=== PATIENT | female | born 1955 | race African-American/Black ===

== ENCOUNTER 2021-02-09 07:06 | Inpatient (IN) | payer OTHER ==
[~2021-02-09] VITALS: Ht 160 cm; Wt 81.4 kg
[~2021-02-09 07:06] MED LIST: ASPI-1406; GLIP10TA10; LOSA100T3; METF1000
[2021-02-09] MEDS ORDERED: ALBUTEROL (0.083%) 2.5MG/3ML NEB HHN STA (07:21)
[2021-02-09 07:57] LABS: BASOPHILS % 0.4 % (0.0-2.0); EOSINOPHILS % 0.4 % (0.0-5.0); HEMOGLOBIN. 11.7 g/dL (12.0-16.0); MEAN CORPUSCULAR HEMOGLOBIN 31.2 pg (28.0-32.0); MEAN CORPUSCULAR VOLUME 93.1 fL (81.0-99.0); MEAN PLATELET VOLUME 11.6 fl (7.4-10.4); MONOCYTES % 8.4 % (2.0-8.0); NEUTROPHILS % 52.8 % (40.0-76.0); PLATELET 195 x1000/uL (130-400); RED BLOOD CELL COUNT 3.76 mill/uL (4.2-5.4); RED CELL DISTRIBUTION WIDTH 14.3 % (11.6-14.6)
[2021-02-09] MEDS ORDERED: AZITHROMYCIN 500 MG in DEXT 5% WATER 250 ML IV ONE (09:00)
[2021-02-09] MEDS ORDERED: CEFTRIAXONE 1 G PREMIX 50 ML IV ONE (09:00)
[2021-02-09 09:34] LABS: CHLORIDE 111 mEq/L (98-107)
[2021-02-09 09:59] LABS: BG BASE EXCESS -4.7 mmol/L (-2.0-2.0); BG CARBOXYHEMOGLOBIN 0.8 % (0.5-1.5); BG FRACTION INSPIRED OXYGEN 32; BG HCO3 ACT 20.3 mmol/L (22.0-26.0); BG METHEMOGLOBIN 0.3 % (0.0-1.5); BG OXYHEMOGLOBIN 94.9 % (94.0-97.0); BG PCO2 37.2 mmHg (35.0-45.0); BG PH 7.355 (7.350-7.450); BG PO2 89.9 mmHg (75.0-100.0); BG SAMPLE SITE RIGHT BRACHIAL; BG TOTAL HEMOGLOBIN 11.8 g/dL (12.0-18.0); BG VENT MODE NASAL CANNULA
[2021-02-09] MEDS: AMLODIPINE 5MG TABLET PO SCH (10:42)
[2021-02-09] MEDS ORDERED: IPRATROPIUM/ALBUTEROL 0.5-3(2.5)MG/3ML NEB HHN PRN ×2 (12:30→12:45)
[2021-02-09] MEDS ORDERED: FUROSEMIDE 40MG/4ML VIAL IVP SCH (12:30)
[2021-02-09] MEDS ORDERED: POTASSIUM CHLORIDE 20MEQ TABLET SR PO NR (12:45)
[2021-02-09] MEDS ORDERED: CLONIDINE 0.1MG TABLET PO PRN (12:45)
[2021-02-09] MEDS ORDERED: DIPHENHYDRAMINE 50MG/ML VIAL IV PRN (12:45)
[2021-02-09] MEDS ORDERED: ACETAMINOPHEN 325MG TABLET PO PRN (12:45)
[2021-02-09] MEDS: GUAIFENESIN 600MG ER TABLET PO SCH ×2 (13:00→23:14)
[2021-02-09] MEDS ORDERED: DEXTROSE 50% WATER 50ML SYRINGE IV PRN (13:15)
[2021-02-09] MEDS: INSULIN LISPRO 100 UNITS/ML SUBCUT SCH ×3 (13:20→21:00)
[2021-02-09] MEDS: BLOOD SUGAR DIAGNOSTIC STRIP TEST SCH ×3 (13:20→21:02)
[2021-02-09] MEDS: IPRATROPIUM/ALBUTEROL 0.5-3(2.5)MG/3ML NEB HHN SCH ×2 (14:00→20:31)
[2021-02-09] MEDS: ATORVASTATIN CALCIUM 20MG TABLET PO SCH (21:09)
[2021-02-09 22:30] VITALS: BP 161/70
[2021-02-09 23:00] VITALS: BP_SYST 161; BP_SYST 173; BP_DIAS 70; BP_DIAS 79
[2021-02-10] VITALS (10 sets, daily range): BP systolic 104–173; BP diastolic 51–81
[2021-02-10 07:06] LABS: BASOPHILS % 0.7 % (0.0-2.0); EOSINOPHILS % 0.4 % (0.0-5.0); HEMATOCRIT. 31.3 % (36.0-48.0); HEMOGLOBIN. 10.5 g/dL (12.0-16.0); LYMPHOCYTES % 26.5 % (20.0-50.0); MEAN CORPUSCULAR HEMOGLOBIN 31.2 pg (28.0-32.0); MEAN CORPUSCULAR VOLUME 93.2 fL (81.0-99.0); MEAN PLATELET VOLUME 11.7 fl (7.4-10.4); MONOCYTES % 13.8 % (2.0-8.0); NEUTROPHILS % 58.6 % (40.0-76.0); PLATELET 139 x1000/uL (130-400); RED BLOOD CELL COUNT 3.36 mill/uL (4.2-5.4); RED CELL DISTRIBUTION WIDTH 13.5 % (11.6-14.6)
[2021-02-10 07:08] LABS: CHLORIDE 109 mEq/L (98-107)
[2021-02-10 07:20] LABS: LDL CHOLESTEROL 138 mg/dL (5-100)
[2021-02-10 07:21] LABS: HDL CHOLESTEROL 54 mg/dL (40-59)
[2021-02-10] MEDS ORDERED: OMEP20CA14 PO (07:48)
[2021-02-10] MEDS: BLOOD SUGAR DIAGNOSTIC STRIP TEST SCH ×4 (07:49→20:23)
[2021-02-10] MEDS: INSULIN LISPRO 100 UNITS/ML SUBCUT SCH ×4 (07:50→20:23)
[2021-02-10] MEDS: IPRATROPIUM/ALBUTEROL 0.5-3(2.5)MG/3ML NEB HHN SCH (07:51)
[2021-02-10] MEDS: AMLODIPINE 5MG TABLET PO SCH (08:54)
[2021-02-10] MEDS: GUAIFENESIN 600MG ER TABLET PO SCH ×2 (08:54→21:19)
[2021-02-10] MEDS: ASPIRIN 81MG TABLET PO SCH (08:54)
[2021-02-10] MEDS: OMEPRAZOLE 20MG CAPSULE EXTENDED RELEASE PO SCH (08:54)
[2021-02-10] MEDS: CARVEDILOL 6.25 MG TABLET PO SCH ×2 (09:38→21:20)
[2021-02-10] MEDS: ENOXAPARIN 80MG/0.8ML SYR SUBCUT SCH (09:39)
[2021-02-10] MEDS ORDERED: HEPARIN SODIUM 1,000 UNIT/1ML VIAL IV ONE (10:55)
[2021-02-10] MEDS ORDERED: NITROGLYCERIN 50MCG/ML 10ML VIAL (CATH LAB) IV ONE (10:55)
[2021-02-10] MEDS ORDERED: NICARDIPINE 100MCG/ML 10ML VIAL (CATH LAB) IV ONE (10:55)
[2021-02-10] MEDS ORDERED: MIDAZOLAM HCL 2 MG/2 ML VIAL ONE ×3 (12:37→14:12)
[2021-02-10] MEDS ORDERED: FENTANYL CITRATE/PF 50MCG/ML 2ML VIAL ONE ×2 (12:37→14:13)
[2021-02-10] MEDS ORDERED: IODIXANOL 320MG/ML 100 ML BOTTLE IV ONE ×2 (12:38→14:18)
[2021-02-10] MEDS ORDERED: LIDOCAINE HCL 1% 20ML VIAL (Pyxis) INJ ONE (12:38)
[2021-02-10] MEDS ORDERED: VERAPAMIL HCL 2.5 MG/1 ML 2ML VIAL IV ONE (13:16)
[2021-02-10] MEDS ORDERED: IOHEXOL-300 100 ML BOTTLE ONE (13:44)
[2021-02-10] MEDS ORDERED: ATROPINE SULFATE 1MG/10ML SYR IV PRN (15:15)
[2021-02-10] MEDS ORDERED: CLOPIDOGREL 75MG TABLET PO NR ×2 (16:15→19:00)
[2021-02-10] MEDS ORDERED: MORPHINE SULFATE 2 MG/ML CPJ (NOT FOR IM USE) IV NR (16:30)
[2021-02-10] MEDS ORDERED: FUROSEMIDE 40MG/4ML VIAL IVP SCH (18:00)
[2021-02-10] MEDS ORDERED: SODIUM CHLORIDE 0.9% 1,000 ML IV SCH (19:00)
[2021-02-10] MEDS: TRAMADOL 50MG TABLET PO PRN (19:54)
[2021-02-10] MEDS: ATORVASTATIN CALCIUM 20MG TABLET PO SCH (21:19)
[2021-02-11] VITALS (14 sets, daily range): BP systolic 132–191; BP diastolic 55–72
[2021-02-11] MEDS: OMEPRAZOLE 20MG CAPSULE EXTENDED RELEASE PO SCH ×2 (05:52→14:20)
[2021-02-11] MEDS: INSULIN LISPRO 100 UNITS/ML SUBCUT SCH ×4 (07:13→20:35)
[2021-02-11] MEDS: BLOOD SUGAR DIAGNOSTIC STRIP TEST SCH ×4 (07:13→20:35)
[2021-02-11 07:19] LABS: BASOPHILS % 0.8 % (0.0-2.0); EOSINOPHILS % 1.3 % (0.0-5.0); HEMATOCRIT. 32.3 % (36.0-48.0); HEMOGLOBIN. 10.7 g/dL (12.0-16.0); MEAN CORPUSCULAR HEMOGLOBIN 31.4 pg (28.0-32.0); MEAN CORPUSCULAR VOLUME 94.5 fL (81.0-99.0); MEAN PLATELET VOLUME 11.5 fl (7.4-10.4); MONOCYTES % 11.8 % (2.0-8.0); NEUTROPHILS % 61.1 % (40.0-76.0); PLATELET 145 x1000/uL (130-400); RED BLOOD CELL COUNT 3.42 mill/uL (4.2-5.4); RED CELL DISTRIBUTION WIDTH 13.7 % (11.6-14.6)
[2021-02-11 07:26] LABS: INR 1.1; PROTHROMBIN TIME 11.5 sec (9.6-11.0)
[2021-02-11] MEDS: ENOXAPARIN 80MG/0.8ML SYR SUBCUT SCH (09:00)
[2021-02-11] MEDS: CARVEDILOL 6.25 MG TABLET PO SCH ×2 (09:00→20:47)
[2021-02-11] MEDS: ASPIRIN 81MG TABLET PO SCH (09:00)
[2021-02-11] MEDS: GUAIFENESIN 600MG ER TABLET PO SCH ×2 (09:00→20:46)
[2021-02-11] MEDS: CLOPIDOGREL 75MG TABLET PO SCH (09:00)
[2021-02-11] MEDS ORDERED: HEPARIN SODIUM 1,000 UNIT/1ML VIAL IV ONE (09:19)
[2021-02-11] MEDS ORDERED: NITROGLYCERIN 50MCG/ML 10ML VIAL (CATH LAB) IV ONE (09:19)
[2021-02-11] MEDS ORDERED: NICARDIPINE 100MCG/ML 10ML VIAL (CATH LAB) IV ONE (09:19)
[2021-02-11] MEDS ORDERED: IOHEXOL-300 100 ML BOTTLE ONE (11:32)
[2021-02-11] MEDS ORDERED: IODIXANOL 320MG/ML 100 ML BOTTLE IV ONE ×2 (11:32→12:18)
[2021-02-11] MEDS ORDERED: FENTANYL CITRATE/PF 50MCG/ML 2ML VIAL ONE (11:32)
[2021-02-11] MEDS ORDERED: MIDAZOLAM HCL 2 MG/2 ML VIAL ONE (11:32)
[2021-02-11] MEDS ORDERED: LIDOCAINE HCL 1% 20ML VIAL (Pyxis) INJ ONE (11:33)
[2021-02-11 11:58] LABS: CREATINE KINASE 102 IU/L (26-192)
[2021-02-11] MEDS ORDERED: CLOPIDOGREL 75MG TABLET ONE (12:40)
[2021-02-11] MEDS ORDERED: ATROPINE SULFATE 1MG/10ML SYR IV PRN (12:45)
[2021-02-11] MEDS ORDERED: ACETAMINOPHEN 325MG TABLET PO PRN (12:45)
[2021-02-11] MEDS: TRAMADOL 50MG TABLET PO PRN ×2 (13:09→20:48)
[2021-02-11] MEDS: SODIUM CHLORIDE 0.45% 1,000 ML IV SCH ×2 (13:10→22:45)
[2021-02-11] MEDS: AMLODIPINE 5MG TABLET PO SCH (13:11)
[2021-02-11] MEDS: ONDANSETRON HCL 4MG/2ML INJ IV PRN (14:19)
[2021-02-11] MEDS: GABAPENTIN 100MG CAPSULE PO SCH ×2 (14:19→20:47)
[2021-02-11] MEDS ORDERED: ENOXAPARIN 100MG/ML SYR SUBCUT SCH (16:00)
[2021-02-11] MEDS: ATORVASTATIN CALCIUM 20MG TABLET PO SCH (20:46)
[2021-02-11 20:52] LABS: CLARITY URINE CLEAR (CLEAR); COLOR URINE YELLOW (YELLOW); KETONES URINE TRACE (NEGATIVE); LEUKOCYTE ESTERASE URINE NEGATIVE (NEGATIVE); NITRITE URINE NEGATIVE (NEGATIVE); OCCULT BLOOD URINE TRACE (NEGATIVE); PH URINE 5.5 (4.5-8.0); PROTEIN URINE 3+ (NEGATIVE); SPECIFIC GRAVITY URINE 1.051 (1.005-1.030)
[2021-02-11 21:04] LABS: *AMPHETAMINES SCREEN URINE NEGATIVE (NEGATIVE); *BARBITURATES SCREEN URINE NEGATIVE (NEGATIVE); *BENZODIAZEPINES SCREEN URINE PRESUMTIVE POSITIVE (NEGATIVE)
[2021-02-11 21:05] LABS: *COCAINE SCREEN URINE NEGATIVE (NEGATIVE); CANNABINOID URINE SCREEN PRESUMTIVE POSITIVE (NEGATIVE); METHADONE URINE SCREEN NEGATIVE (NEGATIVE); OPIATES URINE SCREEN PRESUMTIVE POSITIVE (NEGATIVE); PHENCYCLIDINE URINE SCREEN NEGATIVE (NEGATIVE)
[2021-02-12] VITALS (9 sets, daily range): BP systolic 111–148; BP diastolic 58–82
[2021-02-12] MEDS: BLOOD SUGAR DIAGNOSTIC STRIP TEST SCH ×2 (06:27→11:50)
[2021-02-12] MEDS: INSULIN LISPRO 100 UNITS/ML SUBCUT SCH ×2 (06:28→12:20)
[2021-02-12] MEDS: GABAPENTIN 100MG CAPSULE PO SCH (06:30)
[2021-02-12] MEDS ORDERED: FAMOTIDINE 20MG TABLET PO SCH (06:50)
[2021-02-12 07:21] LABS: BASOPHILS % 0.7 % (0.0-2.0); EOSINOPHILS % 1.7 % (0.0-5.0); HEMATOCRIT. 30.2 % (36.0-48.0); HEMOGLOBIN. 10.1 g/dL (12.0-16.0); LYMPHOCYTES % 21.1 % (20.0-50.0); MEAN CORPUSCULAR HEMOGLOBIN 31.3 pg (28.0-32.0); MEAN CORPUSCULAR VOLUME 93.7 fL (81.0-99.0); MEAN PLATELET VOLUME 10.6 fl (7.4-10.4); MONOCYTES % 14.6 % (2.0-8.0); NEUTROPHILS % 61.9 % (40.0-76.0); PLATELET 135 x1000/uL (130-400); RED BLOOD CELL COUNT 3.22 mill/uL (4.2-5.4); RED CELL DISTRIBUTION WIDTH 13.8 % (11.6-14.6)
[2021-02-12] MEDS: SODIUM CHLORIDE 0.45% 1,000 ML IV SCH (08:45)
[2021-02-12] MEDS: CARVEDILOL 6.25 MG TABLET PO SCH (09:34)
[2021-02-12] MEDS: ASPIRIN 81MG TABLET PO SCH (09:34)
[2021-02-12] MEDS: AMLODIPINE 5MG TABLET PO SCH (09:34)
[2021-02-12] MEDS: CLOPIDOGREL 75MG TABLET PO SCH (09:35)
[2021-02-12] MEDS: GUAIFENESIN 600MG ER TABLET PO SCH (09:35)
[2021-02-12] MEDS ORDERED: GABA-529 PO ×3 (12:41→15:06)
[2021-02-12] MEDS ORDERED: ATOR20TA PO ×3 (12:41→15:06)
[2021-02-12] MEDS ORDERED: CLOP75TA15 PO ×3 (12:41→15:06)
[2021-02-12] MEDS ORDERED: AMLO5TAB88 PO ×3 (12:41→15:06)
[2021-02-12] MEDS ORDERED: COR6 PO ×3 (12:41→15:06)
[2021-02-12] MEDS: ONDANSETRON HCL 4MG/2ML INJ IV PRN (14:58)
[2021-02-12] MEDS ORDERED: ENOXAPARIN 80MG/0.8ML SYR SUBCUT SCH (17:00)
== END 2021-02-12 16:00 | disposition home or self-care (01) | DRG 175 ==
LOC: ER 07:06 → MICUSO 09:55 → 5EST 21:03 → 3WST 02-10 18:41
PROVIDERS: ADMIT Internal Medicine; ATTEND Internal Medicine
PROC: 027035Z Dilation of Coronary Artery, One Artery with Two Drug-eluting Intraluminal Devices, Percutaneous Approach (ICD-10-PCS; principal; 2021-02-11)
PROC: 4A023N7 Measurement of Cardiac Sampling and Pressure, Left Heart, Percutaneous Approach (ICD-10-PCS; 2021-02-11)
PROC: B211YZZ Fluoroscopy of Multiple Coronary Arteries using Other Contrast (ICD-10-PCS; 2021-02-11)
PROC: B215YZZ Fluoroscopy of Left Heart using Other Contrast (ICD-10-PCS; 2021-02-11)
DX: I25.10 Atherosclerotic heart disease of native coronary artery without angina pectoris (principal); J96.01 Acute respiratory failure with hypoxia; I50.43 Acute on chronic combined systolic (congestive) and diastolic (congestive) heart failure; I21.A1 Myocardial infarction type 2; E44.0 Moderate protein-calorie malnutrition; J18.9 Pneumonia, unspecified organism; N17.9 Acute kidney failure, unspecified; I27.20 Pulmonary hypertension, unspecified; I13.0 Hypertensive heart and chronic kidney disease with heart failure and stage 1 through stage 4 chronic kidney disease, or unspecified chronic kidney disease; E11.22 Type 2 diabetes mellitus with diabetic chronic kidney disease; E66.9 Obesity, unspecified; E78.5 Hyperlipidemia, unspecified; E87.6 Hypokalemia; F17.200 Nicotine dependence, unspecified, uncomplicated; I16.0 Hypertensive urgency; J06.9 Acute upper respiratory infection, unspecified; K74.60 Unspecified cirrhosis of liver; N18.9 Chronic kidney disease, unspecified; I08.3 Combined rheumatic disorders of mitral, aortic and tricuspid valves; Z20.822 Contact with and (suspected) exposure to COVID-19; Z88.0 Allergy status to penicillin; Z98.51 Tubal ligation status; Z68.31 Body mass index [BMI] 31.0-31.9, adult
CPT/HCPCS: 36415; 36600; 71045; 80048; 80053; 80061; 80305; 81003; 82375; 82550; 82805; 82962; 83036; 83880; 84443; 84484; 85025; 85347; 87426; 92928; 93005; 93306; 93454; 93458; 93970; 94640; 99291; A6261; C1760; C1769; C1874 ×2; C1887; C1893; J0456; J0696; J1644; J1650; J1815; J1940; J2250; J2270; J2405; J3010; J3490; J7060; Q9967; C1725

== ENCOUNTER 2021-02-14 03:28 | Inpatient (IN) | payer MEDICAID, OTHER ==
[~2021-02-14] VITALS: Ht 162.6 cm; Wt 79.8 kg
[~2021-02-14 03:28] MED LIST changes: +AMLO5TAB88 PO; +ATOR20TA PO; +CLOP75TA15 PO; +COR6 PO; +GABA-529 PO; -LOSA100T3; +OMEP20CA14 PO
[2021-02-14 05:21] LABS: BASOPHILS % 0.8 % (0.0-2.0); EOSINOPHILS % 1.4 % (0.0-5.0); HEMATOCRIT. 32.7 % (36.0-48.0); HEMOGLOBIN. 11.3 g/dL (12.0-16.0); LYMPHOCYTES % 21.2 % (20.0-50.0); MEAN CORPUSCULAR HEMOGLOBIN 31.9 pg (28.0-32.0); MEAN CORPUSCULAR VOLUME 92.1 fL (81.0-99.0); MEAN PLATELET VOLUME 10.5 fl (7.4-10.4); MONOCYTES % 12.3 % (2.0-8.0); NEUTROPHILS % 64.3 % (40.0-76.0); PLATELET 173 x1000/uL (130-400); RED BLOOD CELL COUNT 3.54 mill/uL (4.2-5.4); RED CELL DISTRIBUTION WIDTH 13.2 % (11.6-14.6)
[2021-02-14 05:35] LABS: CHLORIDE 109 mEq/L (98-107)
[2021-02-14] MEDS ORDERED: AZITHROMYCIN 500 MG in DEXT 5% WATER 250 ML IV ONE (05:45)
[2021-02-14] MEDS ORDERED: CEFTRIAXONE 1 G PREMIX 50 ML IV ONE (05:45)
[2021-02-14] MEDS ORDERED: CLONIDINE 0.1MG TABLET PO PRN (07:30)
[2021-02-14] MEDS ORDERED: ACETAMINOPHEN 325MG TABLET PO PRN (10:30)
[2021-02-14] MEDS ORDERED: CEFTRIAXONE 1 G PREMIX 50 ML IV SCH (10:30)
[2021-02-14] MEDS ORDERED: ONDANSETRON HCL 4MG/2ML INJ IV PRN (10:30)
[2021-02-14] MEDS ORDERED: FUROSEMIDE 40MG/4ML VIAL IVP NR (10:30)
[2021-02-14] MEDS ORDERED: DEXTROSE 50% WATER 50ML SYRINGE IV PRN (10:30)
[2021-02-14] MEDS: AMLODIPINE 10MG TABLET PO SCH (11:14)
[2021-02-14] MEDS: BLOOD SUGAR DIAGNOSTIC STRIP TEST SCH ×3 (13:00→21:09)
[2021-02-14] MEDS: INSULIN LISPRO 100 UNITS/ML SUBCUT SCH ×3 (13:20→21:09)
[2021-02-14 14:00] VITALS: BP 160/63
[2021-02-14 15:41] VITALS: BP 160/63
[2021-02-14 16:00] VITALS: BP 156/62
[2021-02-14] MEDS ORDERED: ENOXAPARIN 40MG/0.4ML SYR SUBCUT SCH (16:30)
[2021-02-14] MEDS: ISOSORBIDE MONONITRATE 60MG TABLET SR 24HR PO SCH (17:15)
[2021-02-14] MEDS ORDERED: *PATIENT'S OWN MEDICATION STORAGE XX SCH (17:45)
[2021-02-14 20:00] VITALS: BP 145/62
[2021-02-14] MEDS: HYDRALAZINE HCL 25MG TABLET PO SCH (21:10)
[2021-02-14] MEDS ORDERED: ENOXAPARIN 80MG/0.8ML SYR SUBCUT SCH (22:30)
[2021-02-15] VITALS: BP 141/57
[2021-02-15 04:00] VITALS: BP 154/64
[2021-02-15] MEDS: HYDRALAZINE HCL 25MG TABLET PO SCH ×3 (06:30→21:20)
[2021-02-15] MEDS ORDERED: CEFTRIAXONE 1,000 MG in DEXTROSE 5% WATER 50 ML IV SCH (07:00)
[2021-02-15] MEDS: INSULIN LISPRO 100 UNITS/ML SUBCUT SCH ×4 (07:39→21:20)
[2021-02-15] MEDS: BLOOD SUGAR DIAGNOSTIC STRIP TEST SCH ×4 (07:39→21:20)
[2021-02-15] MEDS: ASPIRIN 81MG TABLET PO SCH (07:46)
[2021-02-15] MEDS: AZITHROMYCIN 250 MG TABLET PO SCH (07:46)
[2021-02-15] MEDS: CLOPIDOGREL 75MG TABLET PO SCH (07:46)
[2021-02-15] MEDS: AMLODIPINE 10MG TABLET PO SCH (07:46)
[2021-02-15] MEDS: ISOSORBIDE MONONITRATE 60MG TABLET SR 24HR PO SCH (07:46)
[2021-02-15] MEDS: CEFTRIAXONE 1,000 MG in DEXTROSE 5% WATER 50 ML IV SCH (09:03)
[2021-02-15 10:05] LABS: BASOPHILS % 0.5 % (0.0-2.0); EOSINOPHILS % 1.3 % (0.0-5.0); HEMATOCRIT. 29.7 % (36.0-48.0); HEMOGLOBIN. 10.2 g/dL (12.0-16.0); LYMPHOCYTES % 20.2 % (20.0-50.0); MEAN CORPUSCULAR HEMOGLOBIN 31.6 pg (28.0-32.0); MEAN CORPUSCULAR VOLUME 92.2 fL (81.0-99.0); MEAN PLATELET VOLUME 10.6 fl (7.4-10.4); PLATELET 156 x1000/uL (130-400); RED BLOOD CELL COUNT 3.22 mill/uL (4.2-5.4); RED CELL DISTRIBUTION WIDTH 13.6 % (11.6-14.6)
[2021-02-15] MEDS ORDERED: FUROSEMIDE 40MG/4ML VIAL IVP NR (11:15)
[2021-02-15] MEDS ORDERED: FURO-151 MT (11:51)
[2021-02-15] MEDS ORDERED: POTA-79 MT (11:52)
[2021-02-15] MEDS: ENOXAPARIN 80MG/0.8ML SYR SUBCUT SCH (16:18)
[2021-02-15 16:22] VITALS: BP 138/58
[2021-02-15 20:00] VITALS: BP 155/54
[2021-02-16] VITALS: BP 162/60
[2021-02-16 04:00] VITALS: BP 112/64
[2021-02-16] MEDS: HYDRALAZINE HCL 25MG TABLET PO SCH (06:16)
[2021-02-16] MEDS: ENOXAPARIN 80MG/0.8ML SYR SUBCUT SCH (06:16)
[2021-02-16] MEDS: BLOOD SUGAR DIAGNOSTIC STRIP TEST SCH (06:20)
[2021-02-16 08:00] VITALS: BP 113/56
[2021-02-16] MEDS: INSULIN LISPRO 100 UNITS/ML SUBCUT SCH (08:03)
[2021-02-16] MEDS: CEFTRIAXONE 1,000 MG in DEXTROSE 5% WATER 50 ML IV SCH (08:09)
[2021-02-16] MEDS: CLOPIDOGREL 75MG TABLET PO SCH (08:10)
[2021-02-16] MEDS: AZITHROMYCIN 250 MG TABLET PO SCH (08:10)
[2021-02-16] MEDS: ASPIRIN 81MG TABLET PO SCH (08:10)
[2021-02-16] MEDS: AMLODIPINE 10MG TABLET PO SCH (08:11)
[2021-02-16] MEDS: ISOSORBIDE MONONITRATE 60MG TABLET SR 24HR PO SCH (08:11)
[2021-02-16 08:58] VITALS: BP 113/56
== END 2021-02-16 10:24 | disposition home or self-care (01) | DRG 190 ==
LOC: ER 03:53 → 6WST 06:08 → ENRESERV 12:47
PROVIDERS: ADMIT Internal Medicine; ATTEND Internal Medicine
DX: I22.2 Subsequent non-ST elevation (NSTEMI) myocardial infarction (principal); J96.91 Respiratory failure, unspecified with hypoxia; I50.33 Acute on chronic diastolic (congestive) heart failure; N17.9 Acute kidney failure, unspecified; E43 Unspecified severe protein-calorie malnutrition; J18.9 Pneumonia, unspecified organism; E11.22 Type 2 diabetes mellitus with diabetic chronic kidney disease; I13.0 Hypertensive heart and chronic kidney disease with heart failure and stage 1 through stage 4 chronic kidney disease, or unspecified chronic kidney disease; D64.9 Anemia, unspecified; E78.5 Hyperlipidemia, unspecified; I21.4 Non-ST elevation (NSTEMI) myocardial infarction; I25.10 Atherosclerotic heart disease of native coronary artery without angina pectoris; K74.60 Unspecified cirrhosis of liver; I34.0 Nonrheumatic mitral (valve) insufficiency; I16.0 Hypertensive urgency; Z20.822 Contact with and (suspected) exposure to COVID-19; N18.9 Chronic kidney disease, unspecified; E87.5 Hyperkalemia; Z82.49 Family history of ischemic heart disease and other diseases of the circulatory system; Z95.5 Presence of coronary angioplasty implant and graft; Z88.0 Allergy status to penicillin; Z79.899 Other long term (current) drug therapy; Z79.82 Long term (current) use of aspirin; Z68.30 Body mass index [BMI] 30.0-30.9, adult
CPT/HCPCS: 36415; 71045; 80048; 80053; 82962; 83605; 83880; 84484; 85025; 85379; 87426; 93005; 99285; J0456; J0696; J1650; J1815; J1940; J7060

== ENCOUNTER 2021-03-22 17:21 | Inpatient (IN) | payer OTHER ==
[~2021-03-22] VITALS: Ht 165.1 cm; Wt 78.3 kg
[~2021-03-22 17:21] MED LIST changes: +FURO-151 MT; +POTA-79 MT
[2021-03-22 18:47] LABS: BASOPHILS % 0.5 % (0.0-2.0); EOSINOPHILS % 0.8 % (0.0-5.0); HEMOGLOBIN. 8.7 g/dL (12.0-16.0); LYMPHOCYTES % 20.1 % (20.0-50.0); MEAN CORPUSCULAR HEMOGLOBIN 30.9 pg (28.0-32.0); MEAN CORPUSCULAR VOLUME 91.9 fL (81.0-99.0); MONOCYTES % 11.5 % (2.0-8.0); NEUTROPHILS % 67.1 % (40.0-76.0); PLATELET 159 x1000/uL (130-400); RED BLOOD CELL COUNT 2.83 mill/uL (4.2-5.4); RED CELL DISTRIBUTION WIDTH 13.6 % (11.6-14.6)
[2021-03-22 18:50] LABS: CHLORIDE 106 mEq/L (98-107)
[2021-03-22] MEDS ORDERED: NITROGLYCERIN 0.4MG TABLET SL SL PRN (19:30)
[2021-03-22] MEDS ORDERED: ASPIRIN 81MG TABLET PO ONE (19:30)
[2021-03-22] MEDS ORDERED: FUROSEMIDE 20MG/2ML VIAL IVP ONE (19:30)
[2021-03-22] MEDS ORDERED: CLOPIDOGREL 75MG TABLET PO ONE (21:15)
[2021-03-22] MEDS ORDERED: LOSA25TA26 MT (23:42)
[2021-03-22] MEDS ORDERED: CLOP-31 MT (23:42)
[2021-03-23] MEDS ORDERED: DEXTROSE 50% WATER 50ML SYRINGE IV PRN
[2021-03-23] MEDS: ENOXAPARIN 80MG/0.8ML SYR SUBCUT SCH ×2 (00:33→22:15)
[2021-03-23 00:48] VITALS: BP 113/74
[2021-03-23 04:00] VITALS: BP 131/49
[2021-03-23] MEDS: NITROGLYCERIN OINT 1GM/INCH UDPKT TD SCH ×3 (05:58→22:00)
[2021-03-23] MEDS: BLOOD SUGAR DIAGNOSTIC STRIP TEST SCH ×4 (05:59→20:00)
[2021-03-23] MEDS: GABAPENTIN 100MG CAPSULE PO SCH ×3 (05:59→22:13)
[2021-03-23] MEDS: OMEPRAZOLE 20MG CAPSULE EXTENDED RELEASE PO SCH (05:59)
[2021-03-23] MEDS: INSULIN LISPRO 100 UNITS/ML SUBCUT SCH ×4 (06:34→22:14)
[2021-03-23 07:40] LABS: BASOPHILS % 0.9 % (0.0-2.0); HEMATOCRIT. 23.6 % (36.0-48.0); HEMOGLOBIN. 8.2 g/dL (12.0-16.0); LYMPHOCYTES % 25.7 % (20.0-50.0); MEAN CORPUSCULAR HEMOGLOBIN 31.3 pg (28.0-32.0); MEAN CORPUSCULAR VOLUME 90.4 fL (81.0-99.0); MEAN PLATELET VOLUME 10.2 fl (7.4-10.4); MONOCYTES % 14.1 % (2.0-8.0); NEUTROPHILS % 57.3 % (40.0-76.0); PLATELET 142 x1000/uL (130-400); RED BLOOD CELL COUNT 2.61 mill/uL (4.2-5.4); RED CELL DISTRIBUTION WIDTH 13.4 % (11.6-14.6)
[2021-03-23 08:00] VITALS: BP 144/69
[2021-03-23] MEDS: ASPIRIN 81MG TABLET PO SCH (10:03)
[2021-03-23] MEDS: FUROSEMIDE 40MG/4ML VIAL IVP SCH ×2 (10:03→22:15)
[2021-03-23] MEDS: CLOPIDOGREL 75MG TABLET PO SCH (10:03)
[2021-03-23] MEDS: LOSARTAN POTASSIUM 50 MG TABLET PO SCH (10:04)
[2021-03-23] MEDS: METOPROLOL TARTRATE 50MG TABLET PO SCH ×2 (10:07→20:00)
[2021-03-23] MEDS: INSULIN GLARGINE UD 100 UNITS/ML SYR SUBCUT SCH ×2 (10:27→22:13)
[2021-03-23 12:00] VITALS: BP 143/53
[2021-03-23 16:00] VITALS: BP 125/50
[2021-03-23 20:00] VITALS: BP 104/50
[2021-03-23] MEDS ORDERED: ATORVASTATIN CALCIUM 40MG TABLET PO SCH (21:00)
[2021-03-24] VITALS: BP 94/48
[2021-03-24 04:00] VITALS: BP 101/74
[2021-03-24] MEDS: OMEPRAZOLE 20MG CAPSULE EXTENDED RELEASE PO SCH (05:33)
[2021-03-24] MEDS: GABAPENTIN 100MG CAPSULE PO SCH (05:33)
[2021-03-24] MEDS: NITROGLYCERIN OINT 1GM/INCH UDPKT TD SCH (05:35)
[2021-03-24] MEDS: BLOOD SUGAR DIAGNOSTIC STRIP TEST SCH ×2 (06:10→11:41)
[2021-03-24] MEDS: INSULIN LISPRO 100 UNITS/ML SUBCUT SCH ×2 (06:10→11:42)
[2021-03-24 08:00] VITALS: BP 125/54
[2021-03-24] MEDS: ASPIRIN 81MG TABLET PO SCH (09:08)
[2021-03-24] MEDS: METOPROLOL TARTRATE 50MG TABLET PO SCH (09:08)
[2021-03-24] MEDS: LOSARTAN POTASSIUM 50 MG TABLET PO SCH (09:08)
[2021-03-24] MEDS: FUROSEMIDE 40MG/4ML VIAL IVP SCH (09:09)
[2021-03-24] MEDS: CLOPIDOGREL 75MG TABLET PO SCH (09:09)
[2021-03-24] MEDS: INSULIN GLARGINE UD 100 UNITS/ML SYR SUBCUT SCH (11:35)
[2021-03-24 12:33] VITALS: BP 130/47
[2021-03-24 12:42] VITALS: BP 130/47
[2021-03-25] MEDS ORDERED: FAMOTIDINE 20MG TABLET PO SCH (06:40)
== END 2021-03-24 13:33 | disposition home or self-care (01) | DRG 194 ==
LOC: ER 17:21 → ENRESERV 22:25 → 7EST 23:50
PROVIDERS: ADMIT Internal Medicine; ATTEND Internal Medicine
DX: I13.0 Hypertensive heart and chronic kidney disease with heart failure and stage 1 through stage 4 chronic kidney disease, or unspecified chronic kidney disease (principal); I21.A1 Myocardial infarction type 2; E43 Unspecified severe protein-calorie malnutrition; N17.9 Acute kidney failure, unspecified; E87.1 Hypo-osmolality and hyponatremia; D64.9 Anemia, unspecified; E11.22 Type 2 diabetes mellitus with diabetic chronic kidney disease; D72.819 Decreased white blood cell count, unspecified; I50.33 Acute on chronic diastolic (congestive) heart failure; E78.00 Pure hypercholesterolemia, unspecified; E78.5 Hyperlipidemia, unspecified; I34.0 Nonrheumatic mitral (valve) insufficiency; I25.10 Atherosclerotic heart disease of native coronary artery without angina pectoris; N18.9 Chronic kidney disease, unspecified; Z82.49 Family history of ischemic heart disease and other diseases of the circulatory system; Z95.5 Presence of coronary angioplasty implant and graft; Z88.0 Allergy status to penicillin; Z79.82 Long term (current) use of aspirin; Z79.84 Long term (current) use of oral hypoglycemic drugs; Z79.899 Other long term (current) drug therapy; Z68.28 Body mass index [BMI] 28.0-28.9, adult
CPT/HCPCS: 36415; 71045; 80048; 80053; 80061; 82962; 83036; 83880; 84484; 85025; 93005; 99291; J1650; J1815; J1940

== ENCOUNTER 2021-03-28 20:35 | Inpatient (IN) | payer OTHER ==
[~2021-03-28] VITALS: Ht 165.1 cm; Wt 81.6 kg
[~2021-03-28 20:35] MED LIST changes: +CLOP-31 MT; +LOSA25TA26 MT
[2021-03-28 21:57] LABS: BASOPHILS % 0.7 % (0.0-2.0); EOSINOPHILS % 1.2 % (0.0-5.0); HEMATOCRIT. 22.8 % (36.0-48.0); HEMOGLOBIN. 7.3 g/dL (12.0-16.0); LYMPHOCYTES % 32.5 % (20.0-50.0); MEAN CORPUSCULAR HEMOGLOBIN 30.7 pg (28.0-32.0); MEAN CORPUSCULAR VOLUME 95.1 fL (81.0-99.0); MEAN PLATELET VOLUME 10.7 fl (7.4-10.4); MONOCYTES % 13.4 % (2.0-8.0); NEUTROPHILS % 52.2 % (40.0-76.0); PLATELET 144 x1000/uL (130-400); RED BLOOD CELL COUNT 2.39 mill/uL (4.2-5.4); RED CELL DISTRIBUTION WIDTH 13.8 % (11.6-14.6)
[2021-03-28 22:04] LABS: CHLORIDE 110 mEq/L (98-107)
[2021-03-28] MEDS ORDERED: FUROSEMIDE 40MG/4ML VIAL IVP ONE (22:30)
[2021-03-29] MEDS ORDERED: ASPIRIN 325MG TABLET PO ONE (01:00)
[2021-03-29 03:30] VITALS: BP 134/61
[2021-03-29] MEDS ORDERED: *PATIENT'S OWN MEDICATION STORAGE XX SCH (05:45)
[2021-03-29] MEDS: GABAPENTIN 100MG CAPSULE PO SCH ×3 (06:23→21:00)
[2021-03-29] MEDS: OMEPRAZOLE 20MG CAPSULE EXTENDED RELEASE PO SCH (06:23)
[2021-03-29 08:03] VITALS: BP 135/41
[2021-03-29] MEDS: ASPIRIN 81MG TABLET PO SCH (09:11)
[2021-03-29 09:27] LABS: BASOPHILS % 0.6 % (0.0-2.0); HEMATOCRIT. 22.2 % (36.0-48.0); HEMOGLOBIN. 7.2 g/dL (12.0-16.0); LYMPHOCYTES % 29.6 % (20.0-50.0); MEAN CORPUSCULAR HEMOGLOBIN 29.5 pg (28.0-32.0); MEAN CORPUSCULAR VOLUME 91.5 fL (81.0-99.0); MONOCYTES % 14.2 % (2.0-8.0); NEUTROPHILS % 54.6 % (40.0-76.0); PLATELET 136 x1000/uL (130-400); RED BLOOD CELL COUNT 2.43 mill/uL (4.2-5.4); RED CELL DISTRIBUTION WIDTH 13.5 % (11.6-14.6)
[2021-03-29] MEDS ORDERED: DEXTROSE 50% WATER 50ML SYRINGE IV PRN (10:30)
[2021-03-29] MEDS ORDERED: ASPIRIN 81MG EC TABLET PO SCH (10:30)
[2021-03-29] MEDS ORDERED: OMEPRAZOLE 20MG CAPSULE EXTENDED RELEASE PO SCH (10:30)
[2021-03-29 12:00] VITALS: BP 139/76
[2021-03-29] MEDS: AMLODIPINE 5MG TABLET PO SCH (12:42)
[2021-03-29] MEDS: CARVEDILOL 6.25 MG TABLET PO SCH ×2 (12:42→20:59)
[2021-03-29] MEDS: LOSARTAN POTASSIUM 25 MG TABLET PO SCH (12:43)
[2021-03-29] MEDS: CLOPIDOGREL 75MG TABLET PO SCH (12:43)
[2021-03-29] MEDS: INSULIN LISPRO 100 UNITS/ML SUBCUT SCH ×3 (12:50→20:58)
[2021-03-29] MEDS: BLOOD SUGAR DIAGNOSTIC STRIP TEST SCH ×3 (12:51→20:59)
[2021-03-29 16:00] VITALS: BP 112/42
[2021-03-29] MEDS: LORAZEPAM 2MG/ML CPJ IV PRN (18:20)
[2021-03-29 20:00] VITALS: BP 127/45
[2021-03-29] MEDS: ATORVASTATIN CALCIUM 20MG TABLET PO SCH (21:00)
[2021-03-29] MEDS ORDERED: ATORVASTATIN CALCIUM 20MG TABLET PO SCH (21:00)
[2021-03-29] MEDS ORDERED: ENOXAPARIN 30MG/0.3ML SYR SUBCUT SCH (21:00)
[2021-03-30] VITALS (9 sets, daily range): BP systolic 110–151; BP diastolic 37–71
[2021-03-30] MEDS: OMEPRAZOLE 20MG CAPSULE EXTENDED RELEASE PO SCH (06:28)
[2021-03-30] MEDS: GABAPENTIN 100MG CAPSULE PO SCH ×3 (06:28→21:45)
[2021-03-30] MEDS: CLOPIDOGREL 75MG TABLET PO SCH (08:32)
[2021-03-30] MEDS: AMLODIPINE 5MG TABLET PO SCH (08:32)
[2021-03-30] MEDS: ASPIRIN 81MG TABLET PO SCH (08:32)
[2021-03-30] MEDS: LOSARTAN POTASSIUM 25 MG TABLET PO SCH (08:32)
[2021-03-30] MEDS: CARVEDILOL 6.25 MG TABLET PO SCH ×2 (08:33→21:45)
[2021-03-30] MEDS: INSULIN LISPRO 100 UNITS/ML SUBCUT SCH ×5 (08:34→21:48)
[2021-03-30] MEDS ORDERED: DEXTROSE 50% WATER 50ML SYRINGE IV PRN (12:45)
[2021-03-30 12:51] LABS: BASOPHILS % 0.6 % (0.0-2.0); EOSINOPHILS % 1.2 % (0.0-5.0); MEAN CORPUSCULAR HEMOGLOBIN 29.9 pg (28.0-32.0); MEAN CORPUSCULAR VOLUME 91.9 fL (81.0-99.0); MEAN PLATELET VOLUME 11.1 fl (7.4-10.4); MONOCYTES % 13.9 % (2.0-8.0); NEUTROPHILS % 56.3 % (40.0-76.0); PLATELET 95 x1000/uL (130-400); RED BLOOD CELL COUNT 2.17 mill/uL (4.2-5.4); RED CELL DISTRIBUTION WIDTH 13.6 % (11.6-14.6)
[2021-03-30 12:58] LABS: HEMOGLOBIN. 6.5 g/dL (12.0-16.0)
[2021-03-30] MEDS: FUROSEMIDE 40MG/4ML VIAL IVP SCH (14:35)
[2021-03-30 16:54] LABS: TOTAL IRON BINDING CAPACITY 311 ug/dL (250-450)
[2021-03-30 17:20] LABS: FOLIC ACID (FOLATE) SERUM 16.8 ng/mL (>5.38)
[2021-03-30] MEDS ORDERED: INFLUENZA VACCINE 05/PF 0.5 ML SYRINGE IM ONE (18:00)
[2021-03-30 18:11] LABS: INR 1.1; PROTHROMBIN TIME 11.3 sec (9.6-11.0)
[2021-03-30] MEDS: ATORVASTATIN CALCIUM 20MG TABLET PO SCH (21:45)
[2021-03-30] MEDS: BLOOD SUGAR DIAGNOSTIC STRIP TEST SCH (21:49)
[2021-03-30] MEDS: LORAZEPAM 2MG/ML CPJ IV PRN (21:59)
[2021-03-31] VITALS (7 sets, daily range): BP systolic 122–145; BP diastolic 52–69
[2021-03-31 02:48] LABS: BASOPHILS % 0.9 % (0.0-2.0); EOSINOPHILS % 2.4 % (0.0-5.0); HEMATOCRIT. 24.3 % (36.0-48.0); HEMOGLOBIN. 7.8 g/dL (12.0-16.0); LYMPHOCYTES % 25.2 % (20.0-50.0); MEAN CORPUSCULAR VOLUME 90.9 fL (81.0-99.0); MEAN PLATELET VOLUME 10.6 fl (7.4-10.4); MONOCYTES % 14.5 % (2.0-8.0); PLATELET 108 x1000/uL (130-400); RED BLOOD CELL COUNT 2.68 mill/uL (4.2-5.4)
[2021-03-31 02:59] LABS: PROTHROMBIN TIME 11.2 sec (9.6-11.0)
[2021-03-31] MEDS: OMEPRAZOLE 20MG CAPSULE EXTENDED RELEASE PO SCH (06:22)
[2021-03-31] MEDS: BLOOD SUGAR DIAGNOSTIC STRIP TEST SCH ×3 (06:22→20:47)
[2021-03-31] MEDS: GABAPENTIN 100MG CAPSULE PO SCH ×3 (06:22→21:18)
[2021-03-31] MEDS: INSULIN LISPRO 100 UNITS/ML SUBCUT SCH ×4 (07:50→21:27)
[2021-03-31] MEDS ORDERED: CEFAZOLIN 1000MG PREMIX 50 ML IV SCH (08:00)
[2021-03-31] MEDS: ASPIRIN 81MG TABLET PO SCH (08:10)
[2021-03-31] MEDS: LOSARTAN POTASSIUM 25 MG TABLET PO SCH (08:12)
[2021-03-31] MEDS: CLOPIDOGREL 75MG TABLET PO SCH (08:13)
[2021-03-31] MEDS: AMLODIPINE 5MG TABLET PO SCH (08:13)
[2021-03-31] MEDS: CARVEDILOL 6.25 MG TABLET PO SCH ×2 (08:23→21:18)
[2021-03-31] MEDS: FUROSEMIDE 40MG/4ML VIAL IVP SCH (08:24)
[2021-03-31] MEDS ORDERED: FENTANYL CITRATE/PF 50MCG/ML 2ML VIAL IV PRN (11:41)
[2021-03-31] MEDS ORDERED: MIDAZOLAM HCL 2 MG/2 ML VIAL IV PRN (11:42)
[2021-03-31] MEDS ORDERED: MIDAZOLAM HCL 5 MG/5 ML VIAL ONE (11:47)
[2021-03-31] MEDS ORDERED: FENTANYL CITRATE/PF 50MCG/ML 2ML VIAL ONE (11:48)
[2021-03-31] MEDS: LORAZEPAM 2MG/ML CPJ IV PRN (21:18)
[2021-03-31] MEDS: ATORVASTATIN CALCIUM 20MG TABLET PO SCH (21:20)
[2021-04-01] VITALS: BP 147/59
[2021-04-01 04:00] VITALS: BP 128/39
[2021-04-01] MEDS: GABAPENTIN 100MG CAPSULE PO SCH ×2 (06:00→14:29)
[2021-04-01] MEDS: OMEPRAZOLE 20MG CAPSULE EXTENDED RELEASE PO SCH (06:30)
[2021-04-01] MEDS: BLOOD SUGAR DIAGNOSTIC STRIP TEST SCH (06:30)
[2021-04-01 08:00] VITALS: BP 139/57
[2021-04-01] MEDS ORDERED: FUROSEMIDE 40MG TABLET PO SCH (09:00)
[2021-04-01] MEDS: AMLODIPINE 5MG TABLET PO SCH (09:00)
[2021-04-01] MEDS: CLOPIDOGREL 75MG TABLET PO SCH (09:04)
[2021-04-01] MEDS: ASPIRIN 81MG TABLET PO SCH (09:05)
[2021-04-01] MEDS: CARVEDILOL 6.25 MG TABLET PO SCH (09:05)
[2021-04-01] MEDS: LOSARTAN POTASSIUM 25 MG TABLET PO SCH (09:06)
[2021-04-01] MEDS: INSULIN LISPRO 100 UNITS/ML SUBCUT SCH ×2 (09:07→13:14)
[2021-04-01 11:04] LABS: BASOPHILS % 0.7 % (0.0-2.0); EOSINOPHILS % 1.8 % (0.0-5.0); HEMOGLOBIN. 8.5 g/dL (12.0-16.0); LYMPHOCYTES % 20.9 % (20.0-50.0); MEAN CORPUSCULAR HEMOGLOBIN 28.8 pg (28.0-32.0); MEAN CORPUSCULAR VOLUME 88.2 fL (81.0-99.0); MEAN PLATELET VOLUME 10.9 fl (7.4-10.4); MONOCYTES % 11.4 % (2.0-8.0); NEUTROPHILS % 65.2 % (40.0-76.0); PLATELET 141 x1000/uL (130-400); RED BLOOD CELL COUNT 2.95 mill/uL (4.2-5.4); RED CELL DISTRIBUTION WIDTH 14.5 % (11.6-14.6)
[2021-04-01 12:00] VITALS: BP 140/57
[2021-04-01] MEDS ORDERED: SITA50TA3 MT (14:29)
[2021-04-01 15:30] VITALS: BP 140/57
[2021-04-01] MEDS ORDERED: FURO40TA5 PO (17:17)
== END 2021-04-01 17:15 | disposition home or self-care (01) | DRG 194 ==
LOC: ER 20:35 → 6WST 03-29 00:44 → ENRESERV 03-29 02:37
PROVIDERS: ADMIT Internal Medicine; ATTEND Internal Medicine
PROC: 30233N1 Transfusion of Nonautologous Red Blood Cells into Peripheral Vein, Percutaneous Approach (ICD-10-PCS; 2021-03-30)
PROC: 0DB78ZX Excision of Stomach, Pylorus, Via Natural or Artificial Opening Endoscopic, Diagnostic (ICD-10-PCS; principal; 2021-03-31)
DX: I13.0 Hypertensive heart and chronic kidney disease with heart failure and stage 1 through stage 4 chronic kidney disease, or unspecified chronic kidney disease (principal); N17.0 Acute kidney failure with tubular necrosis; I21.A1 Myocardial infarction type 2; K29.71 Gastritis, unspecified, with bleeding; E11.22 Type 2 diabetes mellitus with diabetic chronic kidney disease; D64.9 Anemia, unspecified; E78.00 Pure hypercholesterolemia, unspecified; E78.5 Hyperlipidemia, unspecified; I50.33 Acute on chronic diastolic (congestive) heart failure; I24.9 Acute ischemic heart disease, unspecified; E87.5 Hyperkalemia; I25.10 Atherosclerotic heart disease of native coronary artery without angina pectoris; J45.909 Unspecified asthma, uncomplicated; Z20.822 Contact with and (suspected) exposure to COVID-19; K21.9 Gastro-esophageal reflux disease without esophagitis; N18.9 Chronic kidney disease, unspecified; Z95.5 Presence of coronary angioplasty implant and graft; Z79.02 Long term (current) use of antithrombotics/antiplatelets; Z79.4 Long term (current) use of insulin; Z82.49 Family history of ischemic heart disease and other diseases of the circulatory system; Z88.0 Allergy status to penicillin; Z79.82 Long term (current) use of aspirin; Z79.84 Long term (current) use of oral hypoglycemic drugs; Z79.899 Other long term (current) drug therapy
CPT/HCPCS: 36415; 71045; 71250; 76700; 76770; 80048; 80053; 82550; 82607; 82746; 82962; 83036; 83540; 83550; 83880; 84484; 85025; 85384; 86850; 86900; 86920; 87426; 88305; 88312; 88313; 90686; 93005; 93306; 99285; J0690; J1650; J1815; J1940; J2060; J2250; J3010; J7040; P9016

== ENCOUNTER 2021-04-08 18:55 | Inpatient (IN) | payer OTHER ==
[~2021-04-08] VITALS: Ht 165.1 cm; Wt 77.8 kg
[~2021-04-08 18:55] MED LIST changes: -CLOP-31 MT; +FURO40TA5 PO; -METF1000; -POTA-79 MT; +SITA50TA3 MT
[2021-04-08 20:34] LABS: BASOPHILS % 0.3 % (0.0-2.0); EOSINOPHILS % 0.5 % (0.0-5.0); HEMATOCRIT. 22.4 % (36.0-48.0); HEMOGLOBIN. 7.3 g/dL (12.0-16.0); LYMPHOCYTES % 20.4 % (20.0-50.0); MEAN CORPUSCULAR HEMOGLOBIN 28.4 pg (28.0-32.0); MEAN CORPUSCULAR VOLUME 87.8 fL (81.0-99.0); MEAN PLATELET VOLUME 11.4 fl (7.4-10.4); NEUTROPHILS % 66.8 % (40.0-76.0); PLATELET 131 x1000/uL (130-400); RED BLOOD CELL COUNT 2.56 mill/uL (4.2-5.4); RED CELL DISTRIBUTION WIDTH 15.2 % (11.6-14.6)
[2021-04-08 20:38] LABS: CHLORIDE 106 mEq/L (98-107)
[2021-04-08 20:56] LABS: CLARITY URINE CLEAR (CLEAR); COLOR URINE YELLOW (YELLOW); KETONES URINE NEGATIVE (NEGATIVE); LEUKOCYTE ESTERASE URINE TRACE (NEGATIVE); NITRITE URINE NEGATIVE (NEGATIVE); OCCULT BLOOD URINE NEGATIVE (NEGATIVE); PH URINE 5.5 (4.5-8.0); PROTEIN URINE 2+ (NEGATIVE); SPECIFIC GRAVITY URINE 1.015 (1.005-1.030); UROBILINOGEN URINE 0.2 E.U./dL (0.2-1.0)
[2021-04-09] VITALS (9 sets, daily range): BP systolic 135–191; BP diastolic 46–76
[2021-04-09] MEDS: MORPHINE SULFATE 2 MG/ML CPJ (NOT FOR IM USE) IV PRN ×3 (04:21→13:15)
[2021-04-09] MEDS ORDERED: NALOXONE HCL 0.4MG/ML VIAL IV PRN (04:30)
[2021-04-09] MEDS ORDERED: ONDANSETRON HCL 4MG/2ML INJ IV PRN (13:15)
[2021-04-09] MEDS ORDERED: IPRATROPIUM/ALBUTEROL 0.5-3(2.5)MG/3ML NEB HHN PRN (13:15)
[2021-04-09] MEDS ORDERED: DOCUSATE SODIUM 100MG CAPSULE PO PRN (13:15)
[2021-04-09] MEDS ORDERED: DEXTROSE 50% WATER 50ML SYRINGE IV PRN ×2 (13:15)
[2021-04-09] MEDS ORDERED: MAGNESIUM/ALUMINUM HYDROXIDE/SIMETHICONE 30ML UDC PO PRN (13:15)
[2021-04-09] MEDS ORDERED: HYDROCODONE/ACETAMINOPHEN 5/325MG TABLET PO PRN (13:15)
[2021-04-09] MEDS ORDERED: ACETAMINOPHEN 325MG TABLET PO PRN (13:15)
[2021-04-09] MEDS ORDERED: CLONIDINE 0.1MG TABLET PO PRN (13:15)
[2021-04-09] MEDS ORDERED: LEVOFLOXACIN 500MG TABLET PO SCH (13:30)
[2021-04-09] MEDS: BLOOD SUGAR DIAGNOSTIC STRIP TEST SCH ×2 (16:43→21:40)
[2021-04-09] MEDS: INSULIN LISPRO 100 UNITS/ML SUBCUT SCH ×2 (17:05→21:50)
[2021-04-09] MEDS: ASPIRIN 81MG TABLET PO SCH (17:30)
[2021-04-09] MEDS: FUROSEMIDE 40MG TABLET PO SCH (17:30)
[2021-04-09] MEDS: CLOPIDOGREL 75MG TABLET PO SCH (17:30)
[2021-04-09] MEDS: LOSARTAN POTASSIUM 25 MG TABLET PO SCH (17:31)
[2021-04-09] MEDS: ATORVASTATIN CALCIUM 20MG TABLET PO SCH (20:06)
[2021-04-09] MEDS: CARVEDILOL 6.25 MG TABLET PO SCH (20:07)
[2021-04-09] MEDS: GABAPENTIN 100MG CAPSULE PO SCH (21:39)
[2021-04-09] MEDS ORDERED: HYDRALAZINE 20MG/ML VIAL IV PRN (23:45)
[2021-04-09 23:55] LABS: HEMATOCRIT 27.2 % (36.0-48.0); HEMOGLOBIN 9.1 g/dL (12.0-16.0)
[2021-04-10] VITALS: BP 149/50
[2021-04-10 00:12] LABS: CREATINE KINASE MB FRACTION 1.1 ng/mL (0.5-3.6)
[2021-04-10 04:00] VITALS: BP 140/44
[2021-04-10 05:10] LABS: INR 1.1; PROTHROMBIN TIME 11.9 sec (9.6-11.0)
[2021-04-10] MEDS: GABAPENTIN 100MG CAPSULE PO SCH ×3 (06:00→20:40)
[2021-04-10] MEDS: OMEPRAZOLE 20MG CAPSULE EXTENDED RELEASE PO SCH (06:16)
[2021-04-10] MEDS: BLOOD SUGAR DIAGNOSTIC STRIP TEST SCH ×4 (06:17→20:40)
[2021-04-10] MEDS: INSULIN LISPRO 100 UNITS/ML SUBCUT SCH ×4 (06:17→20:41)
[2021-04-10 07:24] LABS: BASOPHILS % 0.5 % (0.0-2.0); EOSINOPHILS % 1.4 % (0.0-5.0); HEMATOCRIT. 26.8 % (36.0-48.0); LYMPHOCYTES % 21.1 % (20.0-50.0); MEAN CORPUSCULAR HEMOGLOBIN 29.3 pg (28.0-32.0); MEAN CORPUSCULAR VOLUME 86.8 fL (81.0-99.0); MEAN PLATELET VOLUME 11.2 fl (7.4-10.4); MONOCYTES % 12.8 % (2.0-8.0); NEUTROPHILS % 64.2 % (40.0-76.0); PLATELET 124 x1000/uL (130-400); RED BLOOD CELL COUNT 3.09 mill/uL (4.2-5.4); RED CELL DISTRIBUTION WIDTH 15.2 % (11.6-14.6)
[2021-04-10 07:27] LABS: FOLIC ACID (FOLATE) SERUM 17.3 ng/mL (>5.38)
[2021-04-10 07:49] LABS: CREATINE KINASE MB FRACTION 1.2 ng/mL (0.5-3.6); T4 FREE 1.25 ng/dL (0.76-1.46)
[2021-04-10 07:57] LABS: INR 1.1
[2021-04-10 08:00] VITALS: BP 146/53
[2021-04-10] MEDS: CARVEDILOL 6.25 MG TABLET PO SCH ×2 (08:33→20:40)
[2021-04-10] MEDS: FUROSEMIDE 40MG TABLET PO SCH (08:33)
[2021-04-10] MEDS: LOSARTAN POTASSIUM 25 MG TABLET PO SCH (08:33)
[2021-04-10] MEDS: ASPIRIN 81MG TABLET PO SCH (08:33)
[2021-04-10] MEDS: CLOPIDOGREL 75MG TABLET PO SCH (08:53)
[2021-04-10] MEDS ORDERED: LEVOFLOXACIN 500MG TABLET PO SCH (11:00)
[2021-04-10 12:00] VITALS: BP 156/56
[2021-04-10] MEDS: LEVOFLOXACIN 250MG TABLET PO SCH (13:47)
[2021-04-10 16:00] VITALS: BP 151/54
[2021-04-10] MEDS ORDERED: NA PHOS,M-B/NA PHOS,DI-BA ENEMA 118ML PR NR (16:33)
[2021-04-10 17:24] LABS: CREATINE KINASE 59 IU/L (26-192)
[2021-04-10 20:00] VITALS: BP 147/55
[2021-04-10] MEDS ORDERED: ENOXAPARIN 30MG/0.3ML SYR SUBCUT SCH (20:00)
[2021-04-10] MEDS: ATORVASTATIN CALCIUM 20MG TABLET PO SCH (20:40)
[2021-04-10] MEDS: IRON SUCROSE COMPLEX 100 MG/5 ML ML IV SCH (20:40)
[2021-04-11] VITALS: BP 154/58
[2021-04-11 00:44] LABS: CREATINE KINASE 50 IU/L (26-192)
[2021-04-11 04:00] VITALS: BP 155/53
[2021-04-11] MEDS: GABAPENTIN 100MG CAPSULE PO SCH ×3 (05:21→21:18)
[2021-04-11] MEDS: BLOOD SUGAR DIAGNOSTIC STRIP TEST SCH ×4 (05:22→21:18)
[2021-04-11] MEDS: INSULIN LISPRO 100 UNITS/ML SUBCUT SCH ×4 (05:22→21:19)
[2021-04-11] MEDS: OMEPRAZOLE 20MG CAPSULE EXTENDED RELEASE PO SCH (05:22)
[2021-04-11 06:40] LABS: BASOPHILS % 0.4 % (0.0-2.0); EOSINOPHILS % 1.6 % (0.0-5.0); HEMATOCRIT. 29.1 % (36.0-48.0); HEMOGLOBIN. 9.6 g/dL (12.0-16.0); LYMPHOCYTES % 19.1 % (20.0-50.0); MEAN CORPUSCULAR HEMOGLOBIN 28.9 pg (28.0-32.0); MEAN CORPUSCULAR VOLUME 87.7 fL (81.0-99.0); MEAN PLATELET VOLUME 10.6 fl (7.4-10.4); MONOCYTES % 13.1 % (2.0-8.0); NEUTROPHILS % 65.8 % (40.0-76.0); PLATELET 134 x1000/uL (130-400); RED BLOOD CELL COUNT 3.32 mill/uL (4.2-5.4); RED CELL DISTRIBUTION WIDTH 14.9 % (11.6-14.6)
[2021-04-11 08:00] VITALS: BP 128/53
[2021-04-11] MEDS: ASPIRIN 81MG TABLET PO SCH (08:17)
[2021-04-11] MEDS: LOSARTAN POTASSIUM 25 MG TABLET PO SCH (08:18)
[2021-04-11] MEDS: CLOPIDOGREL 75MG TABLET PO SCH (08:18)
[2021-04-11] MEDS: FUROSEMIDE 40MG TABLET PO SCH (08:18)
[2021-04-11] MEDS: CARVEDILOL 6.25 MG TABLET PO SCH ×2 (08:18→21:18)
[2021-04-11 12:00] VITALS: BP 131/50
[2021-04-11] MEDS: LEVOFLOXACIN 250MG TABLET PO SCH (12:17)
[2021-04-11 16:00] VITALS: BP 120/57
[2021-04-11] MEDS ORDERED: INSULIN LISPRO 100 UNITS/ML SUBCUT NR (17:00)
[2021-04-11 20:00] VITALS: BP 174/68
[2021-04-11] MEDS: ATORVASTATIN CALCIUM 20MG TABLET PO SCH (21:18)
[2021-04-11] MEDS: IRON SUCROSE COMPLEX 100 MG/5 ML ML IV SCH (21:18)
[2021-04-11] MEDS ORDERED: INSULIN GLARGINE UD 100 UNITS/ML SYR SUBCUT SCH (22:00)
[2021-04-12] VITALS: BP 136/52
[2021-04-12] MEDS: MORPHINE SULFATE 2 MG/ML CPJ (NOT FOR IM USE) IV PRN ×2 (02:18→06:46)
[2021-04-12 04:00] VITALS: BP 120/43
[2021-04-12] MEDS: OMEPRAZOLE 20MG CAPSULE EXTENDED RELEASE PO SCH (06:36)
[2021-04-12] MEDS: GABAPENTIN 100MG CAPSULE PO SCH ×2 (06:36→13:29)
[2021-04-12] MEDS: BLOOD SUGAR DIAGNOSTIC STRIP TEST SCH ×2 (06:36→11:14)
[2021-04-12] MEDS: INSULIN LISPRO 100 UNITS/ML SUBCUT SCH ×2 (06:46→12:05)
[2021-04-12 08:00] VITALS: BP 142/46
[2021-04-12] MEDS: ASPIRIN 81MG TABLET PO SCH (08:29)
[2021-04-12] MEDS: CARVEDILOL 6.25 MG TABLET PO SCH (08:29)
[2021-04-12] MEDS: FUROSEMIDE 40MG TABLET PO SCH (08:29)
[2021-04-12] MEDS: LOSARTAN POTASSIUM 25 MG TABLET PO SCH (08:29)
[2021-04-12] MEDS: CLOPIDOGREL 75MG TABLET PO SCH (08:29)
[2021-04-12 09:23] LABS: BASOPHILS % 0.4 % (0.0-2.0); EOSINOPHILS % 1.8 % (0.0-5.0); HEMATOCRIT. 31.1 % (36.0-48.0); HEMOGLOBIN. 10.4 g/dL (12.0-16.0); LYMPHOCYTES % 21.5 % (20.0-50.0); MEAN CORPUSCULAR HEMOGLOBIN 29.3 pg (28.0-32.0); MEAN CORPUSCULAR VOLUME 87.5 fL (81.0-99.0); MEAN PLATELET VOLUME 10.9 fl (7.4-10.4); MONOCYTES % 14.1 % (2.0-8.0); NEUTROPHILS % 62.2 % (40.0-76.0); PLATELET 155 x1000/uL (130-400); RED BLOOD CELL COUNT 3.55 mill/uL (4.2-5.4)
[2021-04-12] MEDS: LEVOFLOXACIN 250MG TABLET PO SCH (10:23)
[2021-04-12 12:00] VITALS: BP 139/48
[2021-04-12 15:15] VITALS: BP 134/46
== END 2021-04-12 16:01 | disposition home or self-care (01) | DRG 133 ==
LOC: ER 18:55 → 7EST 23:37 → ENRESERV 04-09 10:38
PROVIDERS: ADMIT Internal Medicine; ATTEND Internal Medicine
PROC: 30233N1 Transfusion of Nonautologous Red Blood Cells into Peripheral Vein, Percutaneous Approach (ICD-10-PCS; principal; 2021-04-09)
DX: J96.00 Acute respiratory failure, unspecified whether with hypoxia or hypercapnia (principal); N17.0 Acute kidney failure with tubular necrosis; I50.33 Acute on chronic diastolic (congestive) heart failure; E43 Unspecified severe protein-calorie malnutrition; I27.20 Pulmonary hypertension, unspecified; I24.9 Acute ischemic heart disease, unspecified; J84.9 Interstitial pulmonary disease, unspecified; K80.10 Calculus of gallbladder with chronic cholecystitis without obstruction; E11.22 Type 2 diabetes mellitus with diabetic chronic kidney disease; D64.9 Anemia, unspecified; E61.1 Iron deficiency; I13.0 Hypertensive heart and chronic kidney disease with heart failure and stage 1 through stage 4 chronic kidney disease, or unspecified chronic kidney disease; E78.00 Pure hypercholesterolemia, unspecified; E78.5 Hyperlipidemia, unspecified; E87.5 Hyperkalemia; I25.10 Atherosclerotic heart disease of native coronary artery without angina pectoris; Z20.822 Contact with and (suspected) exposure to COVID-19; K76.9 Liver disease, unspecified; N18.9 Chronic kidney disease, unspecified; Z82.49 Family history of ischemic heart disease and other diseases of the circulatory system; Z95.5 Presence of coronary angioplasty implant and graft; Z68.28 Body mass index [BMI] 28.0-28.9, adult; Z88.0 Allergy status to penicillin; Z79.82 Long term (current) use of aspirin; Z79.899 Other long term (current) drug therapy; I25.2 Old myocardial infarction; K92.1 Melena
CPT/HCPCS: 36415; 71045; 74176; 76700; 78582; 80048; 80053; 80061; 80076; 81003; 82105; 82150; 82270; 82378; 82550; 82553; 82607; 82728; 82746; 82962; 83036; 83540; 83550; 83735; 83880; 84100; 84132; 84439; 84443; 84484; 85014; 85018; 85025; 85044; 85049; 85379; 85384; 86301; 86850; 86900; 86920; 87426; 93005; 93970; 97161; 99285; A9558; J0360; J1815; J2270; P9016

== ENCOUNTER 2021-04-30 08:59 | Inpatient (IN) | payer OTHER ==
[~2021-04-30] VITALS: Ht 162.6 cm; Wt 81.6 kg
[~2021-04-30 08:59] MED LIST changes: -ASPI-1406; -FURO-151 MT; -FURO40TA5 PO
[2021-04-30 10:46] LABS: BASOPHILS % 0.5 % (0.0-2.0); EOSINOPHILS % 0.4 % (0.0-5.0); HEMATOCRIT. 28.3 % (36.0-48.0); HEMOGLOBIN. 9.4 g/dL (12.0-16.0); LYMPHOCYTES % 14.1 % (20.0-50.0); MEAN CORPUSCULAR HEMOGLOBIN 29.5 pg (28.0-32.0); MEAN CORPUSCULAR VOLUME 88.7 fL (81.0-99.0); MEAN PLATELET VOLUME 10.2 fl (7.4-10.4); MONOCYTES % 8.1 % (2.0-8.0); NEUTROPHILS % 76.9 % (40.0-76.0); PLATELET 167 x1000/uL (130-400); RED BLOOD CELL COUNT 3.19 mill/uL (4.2-5.4); RED CELL DISTRIBUTION WIDTH 18.7 % (11.6-14.6)
[2021-04-30 10:52] LABS: CHLORIDE 110 mEq/L (98-107)
[2021-04-30] MEDS ORDERED: ASPIRIN 81MG TABLET PO ONE (12:45)
[2021-04-30] MEDS ORDERED: AZITHROMYCIN 500MG/250ML 250 ML IV SCH (15:15)
[2021-04-30] MEDS ORDERED: CEFTRIAXONE 1 G PREMIX 50 ML IV ONE (15:15)
[2021-04-30] MEDS ORDERED: AZITHROMYCIN 500 MG in DEXT 5% WATER 250 ML IV SCH (15:15)
[2021-04-30] MEDS ORDERED: FUROSEMIDE 40MG/4ML VIAL IVP ONE (15:15)
[2021-04-30] MEDS ORDERED: ACETAMINOPHEN 325MG TABLET PO PRN ×2 (17:00)
[2021-04-30] MEDS ORDERED: CLONIDINE 0.1MG TABLET PO PRN (17:00)
[2021-04-30] MEDS ORDERED: ONDANSETRON HCL 4MG/2ML INJ IV PRN (17:00)
[2021-04-30] MEDS ORDERED: IPRATROPIUM/ALBUTEROL 0.5-3(2.5)MG/3ML NEB HHN PRN (17:00)
[2021-04-30] MEDS ORDERED: DOCUSATE SODIUM 100MG CAPSULE PO PRN (17:00)
[2021-04-30] MEDS ORDERED: LORAZEPAM 0.5MG TABLET PO PRN (17:00)
[2021-04-30] MEDS ORDERED: LORAZEPAM 2MG/ML CPJ IV PRN (17:00)
[2021-04-30] MEDS: AMLODIPINE 5MG TABLET PO SCH (17:32)
[2021-04-30] MEDS: CLOPIDOGREL 75MG TABLET PO SCH (17:32)
[2021-04-30 17:40] LABS: *AMPHETAMINES SCREEN URINE NEGATIVE (NEGATIVE); *BARBITURATES SCREEN URINE NEGATIVE (NEGATIVE); *BENZODIAZEPINES SCREEN URINE NEGATIVE (NEGATIVE); *COCAINE SCREEN URINE NEGATIVE (NEGATIVE); METHADONE URINE SCREEN NEGATIVE (NEGATIVE)
[2021-04-30 17:41] LABS: CANNABINOID URINE SCREEN NEGATIVE (NEGATIVE); OPIATES URINE SCREEN NEGATIVE (NEGATIVE); PHENCYCLIDINE URINE SCREEN NEGATIVE (NEGATIVE)
[2021-04-30 19:03] LABS: D-DIMER 0.64 mg/L FEU (<0.50); INR 1.1; PROTHROMBIN TIME 11.4 sec (9.6-11.0)
[2021-04-30] MEDS: HYDROCODONE/ACETAMINOPHEN 5/325MG TABLET PO PRN (19:58)
[2021-04-30] MEDS: GABAPENTIN 100MG CAPSULE PO SCH (22:45)
[2021-04-30] MEDS: FUROSEMIDE 40MG/4ML VIAL IV SCH (22:45)
[2021-05-01] VITALS (13 sets, daily range): BP systolic 129–167; BP diastolic 57–76
[2021-05-01] MEDS: GABAPENTIN 100MG CAPSULE PO SCH ×3 (05:26→21:17)
[2021-05-01 07:15] LABS: BASOPHILS % 0.5 % (0.0-2.0); HEMATOCRIT. 26.8 % (36.0-48.0); HEMOGLOBIN. 8.9 g/dL (12.0-16.0); LYMPHOCYTES % 26.4 % (20.0-50.0); MEAN CORPUSCULAR HEMOGLOBIN 29.9 pg (28.0-32.0); MEAN CORPUSCULAR VOLUME 90.2 fL (81.0-99.0); MEAN PLATELET VOLUME 10.2 fl (7.4-10.4); NEUTROPHILS % 57.1 % (40.0-76.0); PLATELET 154 x1000/uL (130-400); RED BLOOD CELL COUNT 2.98 mill/uL (4.2-5.4); RED CELL DISTRIBUTION WIDTH 19.2 % (11.6-14.6)
[2021-05-01] MEDS: OMEPRAZOLE 20MG CAPSULE EXTENDED RELEASE PO SCH (08:18)
[2021-05-01] MEDS: ASPIRIN 81MG TABLET PO SCH (08:18)
[2021-05-01] MEDS: CLOPIDOGREL 75MG TABLET PO SCH (08:19)
[2021-05-01] MEDS: AMLODIPINE 5MG TABLET PO SCH (08:19)
[2021-05-01] MEDS: FUROSEMIDE 40MG/4ML VIAL IV SCH ×2 (08:22→17:05)
[2021-05-01] MEDS ORDERED: DEXTROSE 50% WATER 50ML SYRINGE IV PRN (10:45)
[2021-05-01] MEDS: BLOOD SUGAR DIAGNOSTIC STRIP TEST SCH ×3 (11:30→21:13)
[2021-05-01] MEDS ORDERED: INFLUENZA VACCINE 05/PF 0.5 ML SYRINGE IM ONE (12:00)
[2021-05-01] MEDS: INSULIN LISPRO 100 UNITS/ML SUBCUT SCH ×3 (12:29→21:16)
[2021-05-01 13:15] LABS: CLARITY URINE CLEAR (CLEAR); COLOR URINE YELLOW (YELLOW); KETONES URINE NEGATIVE (NEGATIVE); LEUKOCYTE ESTERASE URINE NEGATIVE (NEGATIVE); NITRITE URINE NEGATIVE (NEGATIVE); OCCULT BLOOD URINE NEGATIVE (NEGATIVE); PH URINE 6.5 (4.5-8.0); PROTEIN URINE 2+ (NEGATIVE); SPECIFIC GRAVITY URINE 1.008 (1.005-1.030); UROBILINOGEN URINE 0.2 E.U./dL (0.2-1.0)
[2021-05-02] VITALS (14 sets, daily range): BP systolic 105–170; BP diastolic 29–80
[2021-05-02] MEDS: GABAPENTIN 100MG CAPSULE PO SCH ×3 (06:00→21:05)
[2021-05-02] MEDS ORDERED: NITROGLYCERIN 50MCG/ML 10ML VIAL (CATH LAB) IV ONE (08:01)
[2021-05-02] MEDS ORDERED: NICARDIPINE 100MCG/ML 10ML VIAL (CATH LAB) IV ONE (08:01)
[2021-05-02] MEDS: FUROSEMIDE 40MG/4ML VIAL IV SCH ×2 (08:08→18:34)
[2021-05-02] MEDS: INSULIN LISPRO 100 UNITS/ML SUBCUT SCH ×4 (08:10→21:03)
[2021-05-02] MEDS: BLOOD SUGAR DIAGNOSTIC STRIP TEST SCH ×4 (08:11→20:23)
[2021-05-02] MEDS: OMEPRAZOLE 20MG CAPSULE EXTENDED RELEASE PO SCH ×2 (09:00→18:34)
[2021-05-02] MEDS: AMLODIPINE 5MG TABLET PO SCH (09:00)
[2021-05-02] MEDS: CLOPIDOGREL 75MG TABLET PO SCH (09:00)
[2021-05-02] MEDS: ASPIRIN 81MG TABLET PO SCH (09:00)
[2021-05-02 13:18] LABS: BASOPHILS % 0.4 % (0.0-2.0); EOSINOPHILS % 1.5 % (0.0-5.0); HEMATOCRIT. 29.1 % (36.0-48.0); HEMOGLOBIN. 9.6 g/dL (12.0-16.0); LYMPHOCYTES % 23.8 % (20.0-50.0); MEAN CORPUSCULAR HEMOGLOBIN 29.7 pg (28.0-32.0); MEAN CORPUSCULAR VOLUME 90.3 fL (81.0-99.0); MEAN PLATELET VOLUME 10.7 fl (7.4-10.4); NEUTROPHILS % 61.3 % (40.0-76.0); PLATELET 167 x1000/uL (130-400); RED BLOOD CELL COUNT 3.22 mill/uL (4.2-5.4); RED CELL DISTRIBUTION WIDTH 19.5 % (11.6-14.6)
[2021-05-02 13:22] LABS: CHLORIDE 103 mEq/L (98-107)
[2021-05-02 13:28] LABS: PHOSPHORUS 4.3 mg/dL (2.5-4.9)
[2021-05-02] MEDS ORDERED: FENTANYL CITRATE/PF 50MCG/ML 2ML VIAL ONE (13:47)
[2021-05-02] MEDS ORDERED: HEPARIN 1000 UNITS/ML 10ML ONE (13:47)
[2021-05-02] MEDS ORDERED: MIDAZOLAM HCL 2 MG/2 ML VIAL ONE (13:47)
[2021-05-02] MEDS ORDERED: IODIXANOL 320MG/ML 100 ML BOTTLE IV ONE (13:48)
[2021-05-02] MEDS ORDERED: LIDOCAINE HCL 1% 10 MG/ML 10ML VIAL ONE (13:48)
[2021-05-02] MEDS ORDERED: ATROPINE SULFATE 1MG/10ML SYR IV PRN (14:15)
[2021-05-02] MEDS: HYDROCODONE/ACETAMINOPHEN 5/325MG TABLET PO PRN (18:51)
[2021-05-03] VITALS (11 sets, daily range): BP systolic 114–162; BP diastolic 56–74
[2021-05-03 05:29] LABS: HEMATOCRIT. 29.7 % (36.0-48.0); HEMOGLOBIN. 9.7 g/dL (12.0-16.0); MEAN CORPUSCULAR VOLUME 92.2 fL (81.0-99.0); MEAN PLATELET VOLUME 10.3 fl (7.4-10.4); PLATELET 157 x1000/uL (130-400); RED BLOOD CELL COUNT 3.22 mill/uL (4.2-5.4); RED CELL DISTRIBUTION WIDTH 18.8 % (11.6-14.6)
[2021-05-03] MEDS: GABAPENTIN 100MG CAPSULE PO SCH ×2 (05:33→13:27)
[2021-05-03] MEDS: BLOOD SUGAR DIAGNOSTIC STRIP TEST SCH ×2 (07:30→13:04)
[2021-05-03] MEDS: AMLODIPINE 5MG TABLET PO SCH (09:34)
[2021-05-03] MEDS: ASPIRIN 81MG TABLET PO SCH (09:34)
[2021-05-03] MEDS: CLOPIDOGREL 75MG TABLET PO SCH (09:34)
[2021-05-03] MEDS: FUROSEMIDE 40MG/4ML VIAL IV SCH (09:34)
[2021-05-03] MEDS: INSULIN LISPRO 100 UNITS/ML SUBCUT SCH (09:35)
[2021-05-03 11:34] LABS: PLATELET ESTIMATE NORMAL
[2021-05-03] MEDS ORDERED: INSULIN LISPRO 100 UNITS/ML SUBCUT SCH ×2 (13:00)
[2021-05-03] MEDS ORDERED: INSULIN GLARGINE UD 100 UNITS/ML SYR SUBCUT SCH (14:00)
[2021-05-03] MEDS ORDERED: ASPI-1406 MT (15:02)
== END 2021-05-03 18:00 | disposition home or self-care (01) | DRG 190 ==
LOC: ER 08:59 → 5EST 10:51 → CANRESERV 16:45 → ENRESERV 16:45 → EDBEDREQTM 19:24 → EDBEDREQSVC 19:24 → ENRESERV 23:00
PROVIDERS: ADMIT Internal Medicine; ATTEND Internal Medicine
PROC: 4A023N7 Measurement of Cardiac Sampling and Pressure, Left Heart, Percutaneous Approach (ICD-10-PCS; principal; 2021-05-02)
PROC: B211YZZ Fluoroscopy of Multiple Coronary Arteries using Other Contrast (ICD-10-PCS; 2021-05-02)
DX: I21.4 Non-ST elevation (NSTEMI) myocardial infarction (principal); J96.01 Acute respiratory failure with hypoxia; I50.33 Acute on chronic diastolic (congestive) heart failure; E44.0 Moderate protein-calorie malnutrition; E11.649 Type 2 diabetes mellitus with hypoglycemia without coma; I27.21 Secondary pulmonary arterial hypertension; E11.22 Type 2 diabetes mellitus with diabetic chronic kidney disease; D64.9 Anemia, unspecified; E78.5 Hyperlipidemia, unspecified; I13.0 Hypertensive heart and chronic kidney disease with heart failure and stage 1 through stage 4 chronic kidney disease, or unspecified chronic kidney disease; I25.10 Atherosclerotic heart disease of native coronary artery without angina pectoris; R74.01 Elevation of levels of liver transaminase levels; N18.9 Chronic kidney disease, unspecified; Z20.822 Contact with and (suspected) exposure to COVID-19; I08.3 Combined rheumatic disorders of mitral, aortic and tricuspid valves; Z95.5 Presence of coronary angioplasty implant and graft; Z88.0 Allergy status to penicillin; Z79.899 Other long term (current) drug therapy; Z82.49 Family history of ischemic heart disease and other diseases of the circulatory system; Z68.30 Body mass index [BMI] 30.0-30.9, adult
CPT/HCPCS: 36415; 71045; 76770; 80048; 80053; 80305; 81003; 82533; 82550; 82553; 82962; 83735; 83880; 84100; 84145; 84484; 85025; 85379; 87426; 90686; 93005; 93458; 99291; C1769; C1887; C1893; J0456; J0696; J1644; J1815; J1940; J2060; J2250; J3010; J3490; J7060; Q9967

== ENCOUNTER 2021-05-26 03:19 | Inpatient (IN) | payer MEDICAID, OTHER ==
[~2021-05-26] VITALS: Ht 172.7 cm; Wt 78.5 kg
[~2021-05-26 03:19] MED LIST changes: +ASPI-1406 MT; -GLIP10TA10
[2021-05-26] MEDS ORDERED: NITROGLYCERIN 0.4MG TABLET SL SL PRN ×2 (03:45→19:00)
[2021-05-26] MEDS ORDERED: ASPIRIN 81MG TABLET PO ONE (03:45)
[2021-05-26 04:17] LABS: BASOPHILS % 0.6 % (0.0-2.0); EOSINOPHILS % 1.5 % (0.0-5.0); HEMATOCRIT. 26.4 % (36.0-48.0); HEMOGLOBIN. 8.5 g/dL (12.0-16.0); LYMPHOCYTES % 19.2 % (20.0-50.0); MEAN CORPUSCULAR HEMOGLOBIN 29.8 pg (28.0-32.0); MEAN CORPUSCULAR VOLUME 92.6 fL (81.0-99.0); MEAN PLATELET VOLUME 10.9 fl (7.4-10.4); MONOCYTES % 13.2 % (2.0-8.0); NEUTROPHILS % 65.5 % (40.0-76.0); PLATELET 124 x1000/uL (130-400); RED BLOOD CELL COUNT 2.85 mill/uL (4.2-5.4); RED CELL DISTRIBUTION WIDTH 17.7 % (11.6-14.6)
[2021-05-26 04:30] LABS: CHLORIDE 106 mEq/L (98-107)
[2021-05-26 04:34] LABS: ETHANOL BLOOD < 10 mg/dL
[2021-05-26 04:56] LABS: *AMPHETAMINES SCREEN URINE NEGATIVE (NEGATIVE); *BARBITURATES SCREEN URINE NEGATIVE (NEGATIVE); *BENZODIAZEPINES SCREEN URINE NEGATIVE (NEGATIVE); *COCAINE SCREEN URINE NEGATIVE (NEGATIVE); METHADONE URINE SCREEN NEGATIVE (NEGATIVE)
[2021-05-26 04:57] LABS: CANNABINOID URINE SCREEN NEGATIVE (NEGATIVE); OPIATES URINE SCREEN NEGATIVE (NEGATIVE); PHENCYCLIDINE URINE SCREEN NEGATIVE (NEGATIVE)
[2021-05-26] MEDS ORDERED: CLONIDINE 0.1MG TABLET PO PRN (08:45)
[2021-05-26] MEDS ORDERED: DIPHENHYDRAMINE 50MG/ML VIAL IV PRN (08:45)
[2021-05-26] MEDS ORDERED: MORPHINE SULFATE 2 MG/ML CPJ (NOT FOR IM USE) IV PRN (08:45)
[2021-05-26] MEDS ORDERED: ONDANSETRON HCL 4MG/2ML INJ IV PRN (08:45)
[2021-05-26] MEDS ORDERED: IPRATROPIUM/ALBUTEROL 0.5-3(2.5)MG/3ML NEB HHN PRN (08:45)
[2021-05-26] MEDS ORDERED: ACETAMINOPHEN 325MG TABLET PO PRN (08:45)
[2021-05-26] MEDS ORDERED: INSULIN LISPRO 100 UNITS/ML SUBCUT NR (08:45)
[2021-05-26] MEDS: FUROSEMIDE 40MG/4ML VIAL IV SCH ×2 (09:00→09:33)
[2021-05-26 10:05] VITALS: BP 144/51
[2021-05-26 10:25] VITALS: BP 144/51
[2021-05-26] MEDS ORDERED: ATEN-42 PO (10:44)
[2021-05-26] MEDS ORDERED: FERR325T6 PO (10:44)
[2021-05-26] MEDS ORDERED: CHOL400D7 PO (10:44)
[2021-05-26] MEDS ORDERED: FURO40TA5 MT (10:44)
[2021-05-26] MEDS ORDERED: DAPA10TA PO (10:45)
[2021-05-26] MEDS ORDERED: AZITHROMYCIN 500 MG in DEXT 5% WATER 250 ML IV SCH (11:00)
[2021-05-26] MEDS ORDERED: DEXTROSE 50% WATER 50ML SYRINGE IV PRN (11:15)
[2021-05-26] MEDS ORDERED: *PATIENT'S OWN MEDICATION STORAGE XX SCH (11:45)
[2021-05-26 12:00] VITALS: BP 144/49
[2021-05-26] MEDS: BLOOD SUGAR DIAGNOSTIC STRIP TEST SCH ×3 (12:10→20:39)
[2021-05-26] MEDS: INSULIN LISPRO 100 UNITS/ML SUBCUT SCH ×3 (13:25→22:04)
[2021-05-26 16:00] VITALS: BP 149/54
[2021-05-26 20:00] VITALS: BP 147/49
[2021-05-27] VITALS (7 sets, daily range): BP systolic 139–169; BP diastolic 42–56
[2021-05-27] MEDS: BLOOD SUGAR DIAGNOSTIC STRIP TEST SCH ×4 (05:22→20:44)
[2021-05-27] MEDS: INSULIN LISPRO 100 UNITS/ML SUBCUT SCH ×4 (05:26→20:42)
[2021-05-27 07:46] LABS: BASOPHILS % 0.6 % (0.0-2.0); EOSINOPHILS % 1.6 % (0.0-5.0); HEMATOCRIT. 26.4 % (36.0-48.0); HEMOGLOBIN. 8.9 g/dL (12.0-16.0); LYMPHOCYTES % 23.2 % (20.0-50.0); MEAN CORPUSCULAR HEMOGLOBIN 30.8 pg (28.0-32.0); MEAN CORPUSCULAR VOLUME 91.2 fL (81.0-99.0); MEAN PLATELET VOLUME 10.8 fl (7.4-10.4); MONOCYTES % 12.1 % (2.0-8.0); NEUTROPHILS % 62.5 % (40.0-76.0); PLATELET 130 x1000/uL (130-400); RED CELL DISTRIBUTION WIDTH 18.4 % (11.6-14.6)
[2021-05-27 08:04] LABS: CHLORIDE 110 mEq/L (98-107)
[2021-05-27] MEDS: CLOPIDOGREL 75MG TABLET PO SCH (14:56)
[2021-05-27] MEDS ORDERED: NALOXONE HCL 0.4MG/ML VIAL IV PRN (16:30)
[2021-05-27] MEDS: AZITHROMYCIN 500 MG in DEXT 5% WATER 250 ML IV SCH (16:40)
[2021-05-27] MEDS: OMEPRAZOLE 20MG CAPSULE EXTENDED RELEASE PO SCH (20:41)
[2021-05-27] MEDS: FUROSEMIDE 40MG/4ML VIAL IVP SCH (20:42)
[2021-05-27] MEDS: CARVEDILOL 6.25 MG TABLET PO SCH (20:42)
[2021-05-27] MEDS ORDERED: ATORVASTATIN CALCIUM 20MG TABLET PO SCH (21:00)
[2021-05-28] VITALS: BP 129/50
[2021-05-28 04:00] VITALS: BP 139/43
[2021-05-28 05:24] LABS: BASOPHILS % 0.6 % (0.0-2.0); EOSINOPHILS % 1.9 % (0.0-5.0); HEMATOCRIT. 25.7 % (36.0-48.0); HEMOGLOBIN. 8.5 g/dL (12.0-16.0); LYMPHOCYTES % 23.8 % (20.0-50.0); MEAN CORPUSCULAR VOLUME 90.5 fL (81.0-99.0); MEAN PLATELET VOLUME 10.6 fl (7.4-10.4); MONOCYTES % 14.1 % (2.0-8.0); NEUTROPHILS % 59.6 % (40.0-76.0); PLATELET 122 x1000/uL (130-400); RED BLOOD CELL COUNT 2.84 mill/uL (4.2-5.4); RED CELL DISTRIBUTION WIDTH 17.5 % (11.6-14.6)
[2021-05-28] MEDS: BLOOD SUGAR DIAGNOSTIC STRIP TEST SCH ×3 (06:31→17:28)
[2021-05-28] MEDS: OMEPRAZOLE 20MG CAPSULE EXTENDED RELEASE PO SCH (06:31)
[2021-05-28] MEDS: FUROSEMIDE 40MG/4ML VIAL IVP SCH ×2 (06:31→17:39)
[2021-05-28] MEDS: INSULIN LISPRO 100 UNITS/ML SUBCUT SCH ×3 (06:32→17:50)
[2021-05-28 08:00] VITALS: BP 150/48
[2021-05-28] MEDS ORDERED: ATENOLOL 25MG TABLET PO SCH (09:00)
[2021-05-28] MEDS ORDERED: FAMOTIDINE 20MG TABLET PO SCH (09:00)
[2021-05-28] MEDS ORDERED: ASPIRIN 81MG TABLET PO SCH (09:00)
[2021-05-28] MEDS ORDERED: LOSARTAN POTASSIUM 25 MG TABLET PO SCH (09:00)
[2021-05-28] MEDS: CLOPIDOGREL 75MG TABLET PO SCH (09:57)
[2021-05-28] MEDS: CARVEDILOL 6.25 MG TABLET PO SCH (09:58)
[2021-05-28 12:00] VITALS: BP 138/43
[2021-05-28 16:00] VITALS: BP 108/30
[2021-05-28] MEDS: AZITHROMYCIN 500 MG in DEXT 5% WATER 250 ML IV SCH (16:00)
[2021-05-28] MEDS ORDERED: DAPA10TA PO (16:48)
[2021-05-28 18:11] VITALS: BP 108/50
== END 2021-05-28 18:45 | disposition home or self-care (01) | DRG 190 ==
LOC: ER 03:30 → 8WST 05:12 → ENRESERV 07:48
PROVIDERS: ADMIT Internal Medicine; ATTEND Internal Medicine
DX: I21.4 Non-ST elevation (NSTEMI) myocardial infarction (principal); I50.33 Acute on chronic diastolic (congestive) heart failure; E43 Unspecified severe protein-calorie malnutrition; I27.20 Pulmonary hypertension, unspecified; E11.22 Type 2 diabetes mellitus with diabetic chronic kidney disease; D64.9 Anemia, unspecified; E11.65 Type 2 diabetes mellitus with hyperglycemia; E78.5 Hyperlipidemia, unspecified; I25.10 Atherosclerotic heart disease of native coronary artery without angina pectoris; R25.2 Cramp and spasm; Z95.5 Presence of coronary angioplasty implant and graft; I13.0 Hypertensive heart and chronic kidney disease with heart failure and stage 1 through stage 4 chronic kidney disease, or unspecified chronic kidney disease; N18.9 Chronic kidney disease, unspecified; Z91.81 History of falling; I08.3 Combined rheumatic disorders of mitral, aortic and tricuspid valves; Z88.0 Allergy status to penicillin; Z68.26 Body mass index [BMI] 26.0-26.9, adult
CPT/HCPCS: 36415; 71045; 72141; 80048; 80053; 80305; 80320; 82962; 83036; 83880; 84443; 84484; 85025; 93005; 93970; 99285; C1893; J0456; J1200; J1815; J1940; J7040; J7060; G0480

== ENCOUNTER 2021-06-24 20:47 | Inpatient (IN) | payer OTHER ==
[~2021-06-24] VITALS: Ht 170.2 cm; Wt 80.7 kg
[~2021-06-24 20:47] MED LIST changes: -AMLO5TAB88 PO; +ATEN-42 PO; +CHOL400D7 PO; +DAPA10TA PO; +FERR325T6 PO; +FURO40TA5 MT; -GABA-529 PO; -SITA50TA3 MT
[2021-06-24] MEDS ORDERED: SODIUM CHLORIDE 0.9% 1,000 ML IV ONE (22:45)
[2021-06-24 23:24] LABS: CLARITY URINE CLEAR (CLEAR); COLOR URINE YELLOW (YELLOW); KETONES URINE NEGATIVE (NEGATIVE); LEUKOCYTE ESTERASE URINE NEGATIVE (NEGATIVE); NITRITE URINE NEGATIVE (NEGATIVE); OCCULT BLOOD URINE NEGATIVE (NEGATIVE); PROTEIN URINE 2+ (NEGATIVE); SPECIFIC GRAVITY URINE 1.019 (1.005-1.030); UROBILINOGEN URINE 0.2 E.U./dL (0.2-1.0)
[2021-06-24 23:35] LABS: *AMPHETAMINES SCREEN URINE NEGATIVE (NEGATIVE); OPIATES URINE SCREEN NEGATIVE (NEGATIVE); PHENCYCLIDINE URINE SCREEN NEGATIVE (NEGATIVE)
[2021-06-24 23:36] LABS: *BARBITURATES SCREEN URINE NEGATIVE (NEGATIVE); *BENZODIAZEPINES SCREEN URINE NEGATIVE (NEGATIVE); *COCAINE SCREEN URINE NEGATIVE (NEGATIVE); CANNABINOID URINE SCREEN NEGATIVE (NEGATIVE); METHADONE URINE SCREEN NEGATIVE (NEGATIVE)
[2021-06-24 23:37] LABS: CHLORIDE 100 mEq/L (98-107)
[2021-06-24 23:44] LABS: ETHANOL BLOOD < 10 mg/dL
[2021-06-24 23:48] LABS: BETA HYDROXYBUTYRATE 0.1 mMol/L (0.0-0.3)
[2021-06-24 23:50] LABS: BASOPHILS % 0.9 % (0.0-2.0); EOSINOPHILS % 0.1 % (0.0-5.0); HEMATOCRIT. 22.3 % (36.0-48.0); HEMOGLOBIN. 7.4 g/dL (12.0-16.0); MEAN CORPUSCULAR HEMOGLOBIN 29.6 pg (28.0-32.0); MEAN CORPUSCULAR VOLUME 89.4 fL (81.0-99.0); MONOCYTES % 9.8 % (2.0-8.0); NEUTROPHILS % 69.2 % (40.0-76.0); RED CELL DISTRIBUTION WIDTH 15.7 % (11.6-14.6)
[2021-06-25] MEDS ORDERED: FUROSEMIDE 100MG/10ML VIAL IV SCH (02:17)
[2021-06-25 02:21] LABS: MEAN PLATELET VOLUME 11.5 fl (7.4-10.4); PLATELET 164 x1000/uL (130-400)
[2021-06-25] MEDS ORDERED: ALBUTEROL (0.083%) 2.5MG/3ML NEB HHN SCH (02:30)
[2021-06-25] MEDS ORDERED: CALCIUM CHLORIDE 1GM/10ML SYR IV SCH (02:30)
[2021-06-25] MEDS ORDERED: SODIUM BICARBONATE 8.4% 1 MEQ/ML 50ML SYR IV SCH (02:30)
[2021-06-25] MEDS ORDERED: INSULIN REGULAR (HUMULIN R) 300UNITS/3ML VIAL IV SCH (02:30)
[2021-06-25] MEDS ORDERED: ASPIRIN 325MG EC TABLET PO SCH (02:30)
[2021-06-25 02:56] LABS: PARTIAL THROMBOPLASTIN TIME < 21.0 sec (23.4-31.0); PROTHROMBIN TIME 11.2 sec (9.6-11.0)
[2021-06-25] MEDS ORDERED: ENOXAPARIN 100MG/ML SYR SUBCUT SCH (03:00)
[2021-06-25] MEDS ORDERED: ACETAMINOPHEN 325MG TABLET PO PRN (13:30)
[2021-06-25] MEDS ORDERED: DEXTROSE 50% WATER 50ML SYRINGE IV PRN (13:30)
[2021-06-25] MEDS ORDERED: ONDANSETRON HCL 4MG/2ML INJ IV PRN (13:30)
[2021-06-25] MEDS: BLOOD SUGAR DIAGNOSTIC STRIP TEST SCH ×3 (13:58→21:00)
[2021-06-25] MEDS: INSULIN LISPRO 100 UNITS/ML SUBCUT SCH ×3 (14:08→21:20)
[2021-06-25] MEDS: METOPROLOL TARTRATE 25MG TABLET PO SCH ×2 (14:19→23:00)
[2021-06-25 17:00] LABS: CREATINE KINASE MB FRACTION 3.3 ng/mL (0.5-3.6)
[2021-06-25] MEDS: ATORVASTATIN CALCIUM 20MG TABLET PO SCH (21:21)
[2021-06-25] MEDS ORDERED: INSULIN GLARGINE UD 100 UNITS/ML SYR SUBCUT SCH ×2 (22:00)
[2021-06-26] VITALS (7 sets, daily range): BP systolic 107–138; BP diastolic 54–79
[2021-06-26] MEDS: DIPHENHYDRAMINE 50MG CAPSULE PO PRN (03:09)
[2021-06-26 06:01] LABS: BASOPHILS % 1.1 % (0.0-2.0); EOSINOPHILS % 0.7 % (0.0-5.0); HEMATOCRIT. 21.9 % (36.0-48.0); HEMOGLOBIN. 7.4 g/dL (12.0-16.0); LYMPHOCYTES % 24.4 % (20.0-50.0); MEAN CORPUSCULAR HEMOGLOBIN 29.3 pg (28.0-32.0); MEAN CORPUSCULAR VOLUME 86.6 fL (81.0-99.0); MEAN PLATELET VOLUME 9.8 fl (7.4-10.4); MONOCYTES % 14.5 % (2.0-8.0); NEUTROPHILS % 59.3 % (40.0-76.0); PLATELET 191 x1000/uL (130-400); RED BLOOD CELL COUNT 2.53 mill/uL (4.2-5.4); RED CELL DISTRIBUTION WIDTH 16.1 % (11.6-14.6)
[2021-06-26] MEDS: INSULIN LISPRO 100 UNITS/ML SUBCUT SCH ×4 (08:20→21:57)
[2021-06-26] MEDS: DOCUSATE SODIUM 250MG CAPSULE PO SCH (09:00)
[2021-06-26] MEDS: FERROUS SULFATE 325MG TABLET PO SCH ×3 (09:00→17:45)
[2021-06-26] MEDS ORDERED: ASPIRIN 81MG TABLET PO SCH (09:00)
[2021-06-26] MEDS: BLOOD SUGAR DIAGNOSTIC STRIP TEST SCH ×4 (09:32→21:47)
[2021-06-26] MEDS ORDERED: ATOR40TA70 PO (11:44)
[2021-06-26] MEDS ORDERED: GABA-533 PO (11:44)
[2021-06-26] MEDS ORDERED: AMLO5TAB88 PO (11:44)
[2021-06-26] MEDS: METOPROLOL TARTRATE 25MG TABLET PO SCH ×2 (12:56→21:44)
[2021-06-26] MEDS: OMEPRAZOLE 20MG CAPSULE EXTENDED RELEASE PO SCH (12:56)
[2021-06-26] MEDS: FUROSEMIDE 40MG/4ML VIAL IV SCH (17:46)
[2021-06-26] MEDS: ATORVASTATIN CALCIUM 20MG TABLET PO SCH (21:44)
[2021-06-26] MEDS: INSULIN GLARGINE UD 100 UNITS/ML SYR SUBCUT SCH (21:58)
[2021-06-27] VITALS (9 sets, daily range): BP systolic 107–137; BP diastolic 49–71
[2021-06-27] MEDS: OMEPRAZOLE 20MG CAPSULE EXTENDED RELEASE PO SCH (05:58)
[2021-06-27] MEDS: BLOOD SUGAR DIAGNOSTIC STRIP TEST SCH ×4 (06:33→21:31)
[2021-06-27] MEDS: DIPHENHYDRAMINE 50MG CAPSULE PO PRN (07:03)
[2021-06-27 07:20] LABS: HEMATOCRIT. 22.8 % (36.0-48.0); HEMOGLOBIN. 7.5 g/dL (12.0-16.0); MEAN CORPUSCULAR HEMOGLOBIN 29.3 pg (28.0-32.0); MEAN CORPUSCULAR VOLUME 88.6 fL (81.0-99.0); MEAN PLATELET VOLUME 10.3 fl (7.4-10.4); PLATELET 187 x1000/uL (130-400); RED BLOOD CELL COUNT 2.58 mill/uL (4.2-5.4); RED CELL DISTRIBUTION WIDTH 16.2 % (11.6-14.6)
[2021-06-27] MEDS: FUROSEMIDE 40MG/4ML VIAL IV SCH ×2 (07:55→17:00)
[2021-06-27] MEDS: METOPROLOL TARTRATE 25MG TABLET PO SCH ×2 (07:56→21:31)
[2021-06-27] MEDS: FERROUS SULFATE 325MG TABLET PO SCH ×3 (07:56→17:23)
[2021-06-27] MEDS: INSULIN LISPRO 100 UNITS/ML SUBCUT SCH ×4 (07:57→21:32)
[2021-06-27] MEDS: DOCUSATE SODIUM 250MG CAPSULE PO SCH (08:45)
[2021-06-27] MEDS: INSULIN GLARGINE UD 100 UNITS/ML SYR SUBCUT SCH ×2 (10:00→21:32)
[2021-06-27 18:16] LABS: CLARITY URINE CLEAR (CLEAR); COLOR URINE YELLOW (YELLOW); PH URINE 6.5 (4.5-8.0); PROTEIN URINE 2+ (NEGATIVE)
[2021-06-27 18:17] LABS: KETONES URINE NEGATIVE (NEGATIVE); LEUKOCYTE ESTERASE URINE NEGATIVE (NEGATIVE); NITRITE URINE NEGATIVE (NEGATIVE); OCCULT BLOOD URINE NEGATIVE (NEGATIVE); UROBILINOGEN URINE 0.2 E.U./dL (0.2-1.0)
[2021-06-27 19:03] LABS: PLATELET ESTIMATE NORMAL
[2021-06-27] MEDS: GABAPENTIN 400MG CAPSULE PO SCH (19:45)
[2021-06-27] MEDS: ATORVASTATIN CALCIUM 20MG TABLET PO SCH (21:31)
[2021-06-28] VITALS (12 sets, daily range): BP systolic 108–139; BP diastolic 40–79
[2021-06-28] MEDS: BLOOD SUGAR DIAGNOSTIC STRIP TEST SCH ×4 (06:56→21:30)
[2021-06-28] MEDS: DOCUSATE SODIUM 250MG CAPSULE PO SCH (08:45)
[2021-06-28] MEDS: FERROUS SULFATE 325MG TABLET PO SCH ×3 (08:45→18:38)
[2021-06-28] MEDS: FUROSEMIDE 40MG/4ML VIAL IV SCH (08:46)
[2021-06-28] MEDS: GABAPENTIN 400MG CAPSULE PO SCH ×2 (08:46→18:38)
[2021-06-28] MEDS: METOPROLOL TARTRATE 25MG TABLET PO SCH ×2 (08:46→21:30)
[2021-06-28] MEDS: FAMOTIDINE 20MG TABLET PO SCH (08:46)
[2021-06-28] MEDS: INSULIN LISPRO 100 UNITS/ML SUBCUT SCH ×4 (08:47→21:31)
[2021-06-28] MEDS: INSULIN GLARGINE UD 100 UNITS/ML SYR SUBCUT SCH ×2 (10:10→21:32)
[2021-06-28] MEDS: ATORVASTATIN CALCIUM 20MG TABLET PO SCH (21:29)
[2021-06-29] VITALS (8 sets, daily range): BP systolic 122–147; BP diastolic 48–81
[2021-06-29] MEDS: FAMOTIDINE 20MG TABLET PO SCH (05:03)
[2021-06-29] MEDS: BLOOD SUGAR DIAGNOSTIC STRIP TEST SCH ×2 (06:34→11:58)
[2021-06-29] MEDS: METOPROLOL TARTRATE 25MG TABLET PO SCH (08:46)
[2021-06-29] MEDS: FUROSEMIDE 40MG/4ML VIAL IV SCH (08:46)
[2021-06-29] MEDS: GABAPENTIN 400MG CAPSULE PO SCH (08:46)
[2021-06-29] MEDS: DOCUSATE SODIUM 250MG CAPSULE PO SCH (08:46)
[2021-06-29] MEDS: INSULIN LISPRO 100 UNITS/ML SUBCUT SCH ×2 (08:47→12:20)
[2021-06-29] MEDS: FERROUS SULFATE 325MG TABLET PO SCH ×2 (08:52→12:20)
[2021-06-29] MEDS ORDERED: INSULIN GLARGINE UD 100 UNITS/ML SYR SUBCUT SCH (10:00)
[2021-06-29] MEDS ORDERED: FERR325T6 PO (10:43)
[2021-06-29] MEDS: INSULIN GLARGINE UD 100 UNITS/ML SYR SUBCUT SCH (12:06)
== END 2021-06-29 13:15 | disposition home or self-care (01) | DRG 190 ==
LOC: ER 20:47 → 3WST 06-25 04:02 → ENRESERV 06-26 07:42 → EDBEDREQ 06-26 09:28
PROVIDERS: ADMIT Internal Medicine; ATTEND Internal Medicine
DX: I21.4 Non-ST elevation (NSTEMI) myocardial infarction (principal); I50.33 Acute on chronic diastolic (congestive) heart failure; N17.9 Acute kidney failure, unspecified; E87.1 Hypo-osmolality and hyponatremia; I27.20 Pulmonary hypertension, unspecified; E11.22 Type 2 diabetes mellitus with diabetic chronic kidney disease; D64.9 Anemia, unspecified; E11.65 Type 2 diabetes mellitus with hyperglycemia; E78.5 Hyperlipidemia, unspecified; I13.0 Hypertensive heart and chronic kidney disease with heart failure and stage 1 through stage 4 chronic kidney disease, or unspecified chronic kidney disease; N18.9 Chronic kidney disease, unspecified; E87.5 Hyperkalemia; I25.10 Atherosclerotic heart disease of native coronary artery without angina pectoris; Z20.822 Contact with and (suspected) exposure to COVID-19; I25.2 Old myocardial infarction; Z82.49 Family history of ischemic heart disease and other diseases of the circulatory system; Z83.3 Family history of diabetes mellitus; Z98.61 Coronary angioplasty status; Z88.0 Allergy status to penicillin
CPT/HCPCS: 36415; 71045; 80048; 80305; 80320; 81003; 82010; 82962; 84484; 85025; 93005; 93306; 94644; 99285; J1650; J1815; J1940; J3490; J7030; Q0163; G0480

== ENCOUNTER 2021-08-20 04:38 | Emergency (ER) | payer MEDICAID, OTHER ==
[~2021-08-20] VITALS: Ht 165.1 cm; Wt 78.0 kg
[~2021-08-20 04:38] MED LIST changes: +AMLO5TAB88 PO; -ASPI-1406 MT; -ATEN-42 PO; -ATOR20TA PO; +ATOR40TA70 PO; -CHOL400D7 PO; -COR6 PO; +GABA-533 PO
[2021-08-20] MEDS ORDERED: ASPIRIN 325MG EC TABLET PO ONE (05:45)
[2021-08-20] MEDS ORDERED: KETOROLAC 15MG/ML VIAL IV ONE (05:45)
[2021-08-20 06:13] LABS: BASOPHILS % 0.8 % (0.0-2.0); EOSINOPHILS % 2.2 % (0.0-5.0); HEMATOCRIT. 25.1 % (36.0-48.0); HEMOGLOBIN. 8.3 g/dL (12.0-16.0); LYMPHOCYTES % 29.7 % (20.0-50.0); MEAN CORPUSCULAR HEMOGLOBIN 29.9 pg (28.0-32.0); MEAN CORPUSCULAR VOLUME 89.9 fL (81.0-99.0); MEAN PLATELET VOLUME 10.8 fl (7.4-10.4); MONOCYTES % 12.6 % (2.0-8.0); NEUTROPHILS % 54.7 % (40.0-76.0); PLATELET 164 x1000/uL (130-400); RED BLOOD CELL COUNT 2.79 mill/uL (4.2-5.4); RED CELL DISTRIBUTION WIDTH 15.3 % (11.6-14.6)
[2021-08-20 06:21] LABS: CHLORIDE 109 mEq/L (98-107)
[2021-08-20 06:31] LABS: CLARITY URINE CLEAR (CLEAR); COLOR URINE YELLOW (YELLOW); KETONES URINE NEGATIVE (NEGATIVE); LEUKOCYTE ESTERASE URINE NEGATIVE (NEGATIVE); NITRITE URINE NEGATIVE (NEGATIVE); OCCULT BLOOD URINE 1+ (NEGATIVE); PROTEIN URINE 3+ (NEGATIVE); SPECIFIC GRAVITY URINE 1.018 (1.005-1.030); UROBILINOGEN URINE 0.2 E.U./dL (0.2-1.0)
[2021-08-20 07:00] LABS: PHENCYCLIDINE URINE SCREEN NEGATIVE (NEGATIVE)
[2021-08-20 07:01] LABS: *AMPHETAMINES SCREEN URINE NEGATIVE (NEGATIVE); *BARBITURATES SCREEN URINE NEGATIVE (NEGATIVE); *BENZODIAZEPINES SCREEN URINE NEGATIVE (NEGATIVE); *COCAINE SCREEN URINE NEGATIVE (NEGATIVE); CANNABINOID URINE SCREEN NEGATIVE (NEGATIVE)
[2021-08-20 07:02] LABS: OPIATES URINE SCREEN NEGATIVE (NEGATIVE)
[2021-08-20 07:03] LABS: METHADONE URINE SCREEN NEGATIVE (NEGATIVE)
[2021-08-20] MEDS ORDERED: NITROGLYCERIN 0.4MG TABLET SL SL ONE (07:15)
[2021-08-20] MEDS ORDERED: AMLODIPINE 5MG TABLET PO ONE (07:15)
[2021-08-20] MEDS ORDERED: MELO15TA13 MT (09:21)
[2021-08-20 09:43] VITALS: BP 155/84
== END 2021-08-20 09:44 | disposition home or self-care (01) ==
LOC: ER 04:38
DX: M25.512 Pain in left shoulder (principal); I16.0 Hypertensive urgency; E11.9 Type 2 diabetes mellitus without complications; Z98.890 Other specified postprocedural states; K74.60 Unspecified cirrhosis of liver; Z88.0 Allergy status to penicillin
CPT/HCPCS: 36415; 70450; 71045; 73030; 80053; 80305; 81003; 84484; 85025; 93005; 96374; 99285; J1885

== ENCOUNTER 2021-11-17 07:33 | Emergency (ER) | payer OTHER ==
[~2021-11-17] VITALS: Ht 160 cm; Wt 82.0 kg
[~2021-11-17 07:33] MED LIST changes: +MELO15TA13 MT
[2021-11-17] MEDS ORDERED: KETOROLAC 30MG/ML VIAL IV STA (08:25)
[2021-11-17 08:50] LABS: BASOPHILS % 0.3 % (0.0-2.0); EOSINOPHILS % 0.4 % (0.0-5.0); HEMATOCRIT. 25.2 % (36.0-48.0); HEMOGLOBIN. 8.4 g/dL (12.0-16.0); LYMPHOCYTES % 7.5 % (20.0-50.0); MEAN CORPUSCULAR HEMOGLOBIN 30.7 pg (28.0-32.0); MEAN CORPUSCULAR VOLUME 92.2 fL (81.0-99.0); MEAN PLATELET VOLUME 10.1 fl (7.4-10.4); MONOCYTES % 9.6 % (2.0-8.0); NEUTROPHILS % 82.2 % (40.0-76.0); PLATELET 197 x1000/uL (130-400); RED BLOOD CELL COUNT 2.73 mill/uL (4.2-5.4); RED CELL DISTRIBUTION WIDTH 14.7 % (11.6-14.6)
[2021-11-17 08:58] LABS: CHLORIDE 110 mEq/L (98-107)
[2021-11-17 09:00] VITALS: BP 147/72
[2021-11-17] MEDS ORDERED: AZIT250T12 MT (10:43)
[2021-11-20] MEDS ORDERED: LOSA100T32 PO (16:17)
== END 2021-11-17 11:41 | disposition home or self-care (01) ==
LOC: ER 07:33
DX: J18.9 Pneumonia, unspecified organism (principal); I10 Essential (primary) hypertension; Z20.822 Contact with and (suspected) exposure to COVID-19; Z88.0 Allergy status to penicillin
CPT/HCPCS: 36415; 71045; 80053; 85025; 87426; 93005; 96374; 99285; C9803; J1885

== ENCOUNTER 2022-05-25 22:54 | Inpatient (IN) | payer MEDICARE, MEDICAID ==
[~2022-05-25] VITALS: Ht 165.1 cm; Wt 69.1 kg
[~2022-05-25 22:54] MED LIST changes: +INSU100I28 SQ; +LEVO750T68 MT; -LOSA25TA26 MT; +LOSA25TA3 PO; -MELO15TA13 MT
[2022-05-25] MEDS ORDERED: ASPIRIN 325MG TABLET PO ONE (23:30)
[2022-05-26 00:37] LABS: BASOPHILS % 0.7 % (0.0-2.0); EOSINOPHILS % 1.9 % (0.0-5.0); HEMATOCRIT. 22.4 % (36.0-48.0); HEMOGLOBIN. 7.3 g/dL (12.0-16.0); LYMPHOCYTES % 24.4 % (20.0-50.0); MEAN CORPUSCULAR HEMOGLOBIN 29.6 pg (28.0-32.0); MEAN CORPUSCULAR VOLUME 91.3 fL (81.0-99.0); MEAN PLATELET VOLUME 10.4 fl (7.4-10.4); MONOCYTES % 11.9 % (2.0-8.0); NEUTROPHILS % 61.1 % (40.0-76.0); PLATELET 147 x1000/uL (130-400); RED BLOOD CELL COUNT 2.46 mill/uL (4.2-5.4); RED CELL DISTRIBUTION WIDTH 15.3 % (11.6-14.6)
[2022-05-26 00:44] LABS: CHLORIDE 100 mEq/L (98-107)
[2022-05-26 00:57] LABS: PROTHROMBIN TIME 11.1 sec (9.6-11.0)
[2022-05-26 01:16] LABS: CLARITY URINE CLEAR (CLEAR); COLOR URINE YELLOW (YELLOW); KETONES URINE NEGATIVE (NEGATIVE); LEUKOCYTE ESTERASE URINE NEGATIVE (NEGATIVE); NITRITE URINE NEGATIVE (NEGATIVE); OCCULT BLOOD URINE TRACE (NEGATIVE); PH URINE 5.5 (4.5-8.0); PROTEIN URINE 3+ (NEGATIVE); SPECIFIC GRAVITY URINE 1.013 (1.005-1.030); UROBILINOGEN URINE 0.2 E.U./dL (0.2-1.0)
[2022-05-26] MEDS ORDERED: HEPARIN 5000 UNITS/ML VIAL IV ONE (01:30)
[2022-05-26] MEDS ORDERED: AZITHROMYCIN 500 MG TABLET PO ONE (01:30)
[2022-05-26] MEDS ORDERED: HEPARIN 25,000 UNITS PREMIX 250 ML IV ONE (01:30)
[2022-05-26] MEDS ORDERED: SODIUM CHLORIDE 0.9% 500 ML IV ONE (01:30)
[2022-05-26] MEDS ORDERED: HEPARIN 5000 UNITS/ML VIAL IV NR (02:00)
[2022-05-26 03:49] LABS: PARTIAL THROMBOPLASTIN TIME 27.9 sec (23.4-31.0); PROTHROMBIN TIME 11.1 sec (9.6-11.0)
[2022-05-26] MEDS ORDERED: DOCUSATE SODIUM 100MG CAPSULE PO PRN (04:00)
[2022-05-26] MEDS ORDERED: CLONIDINE 0.1MG TABLET PO PRN (04:00)
[2022-05-26] MEDS ORDERED: ONDANSETRON HCL 4MG/2ML INJ IV PRN (04:00)
[2022-05-26] MEDS ORDERED: MAGNESIUM/ALUMINUM HYDROXIDE/SIMETHICONE 30ML UDC PO PRN (04:00)
[2022-05-26] MEDS ORDERED: GUAIFENESIN 200MG/10ML SUGAR FREE UDC PO PRN (04:00)
[2022-05-26] MEDS ORDERED: IPRATROPIUM/ALBUTEROL 0.5-3(2.5)MG/3ML NEB HHN PRN (04:00)
[2022-05-26] MEDS ORDERED: ACETAMINOPHEN 325MG TABLET PO PRN ×2 (04:00)
[2022-05-26] MEDS ORDERED: DEXTROSE 50% WATER 50ML SYRINGE IV PRN (04:30)
[2022-05-26] MEDS ORDERED: NALOXONE HCL 0.4MG/ML VIAL IV PRN (04:45)
[2022-05-26] MEDS ORDERED: ISOS20TA8 PO (04:57)
[2022-05-26] MEDS ORDERED: LOSA100T32 PO (04:57)
[2022-05-26] MEDS ORDERED: HEPARIN 60 UNITS/KG BOLUS IV NR (05:15)
[2022-05-26] MEDS ORDERED: HEPARIN 25,000 UNITS PREMIX 250 ML IV PRN (05:30)
[2022-05-26] MEDS ORDERED: ISOSORBIDE DINITRATE 20MG TABLET PO SCH (09:00)
[2022-05-26] MEDS ORDERED: MEDICATION NOT ON FORMULARY EA (Ferrous Sulfate 325 MG) PO SCH (09:00)
[2022-05-26] MEDS ORDERED: ASPIRIN 81MG EC TABLET PO SCH (09:00)
[2022-05-26] MEDS: FERROUS SULFATE 325MG TABLET PO SCH (09:20)
[2022-05-26] MEDS: ISOSORBIDE DINITRATE 30MG TABLET PO SCH ×3 (09:20→20:57)
[2022-05-26] MEDS: FAMOTIDINE 20MG TABLET PO SCH (09:20)
[2022-05-26] MEDS: LOSARTAN POTASSIUM 100 MG TABLET PO SCH (09:21)
[2022-05-26] MEDS: ATORVASTATIN CALCIUM 40MG TABLET PO SCH (09:21)
[2022-05-26] MEDS: AMLODIPINE 5MG TABLET PO SCH (09:21)
[2022-05-26] MEDS: BLOOD SUGAR DIAGNOSTIC STRIP TEST SCH ×4 (09:39→20:56)
[2022-05-26] MEDS: INSULIN LISPRO 100 UNITS/ML SUBCUT SCH ×4 (09:39→21:11)
[2022-05-26] MEDS ORDERED: HEPARIN BOLUS PRN aPTT 30-44 IV (12:00)
[2022-05-26] MEDS ORDERED: HEPARIN BOLUS PRN aPTT <30 IV (12:00)
[2022-05-26 14:53] VITALS: BP 160/75
[2022-05-26 15:12] VITALS: BP 160/75
[2022-05-26 20:01] VITALS: BP 162/74
[2022-05-26 21:30] LABS: BASOPHILS % 0.6 % (0.0-2.0); EOSINOPHILS % 1.5 % (0.0-5.0); HEMATOCRIT. 24.9 % (36.0-48.0); HEMOGLOBIN. 8.1 g/dL (12.0-16.0); LYMPHOCYTES % 21.2 % (20.0-50.0); MEAN CORPUSCULAR HEMOGLOBIN 29.9 pg (28.0-32.0); MEAN CORPUSCULAR VOLUME 92.3 fL (81.0-99.0); MEAN PLATELET VOLUME 10.8 fl (7.4-10.4); MONOCYTES % 10.5 % (2.0-8.0); NEUTROPHILS % 66.2 % (40.0-76.0); PLATELET 145 x1000/uL (130-400); RED CELL DISTRIBUTION WIDTH 15.3 % (11.6-14.6)
[2022-05-26 21:32] LABS: CHLORIDE 103 mEq/L (98-107)
[2022-05-26 21:37] LABS: PHOSPHORUS 4.9 mg/dL (2.5-4.9)
[2022-05-26 21:44] LABS: CREATINE KINASE MB FRACTION 1.8 ng/mL (0.5-3.6)
[2022-05-26 22:34] LABS: FOLIC ACID (FOLATE) SERUM >20 ng/mL ng/mL (>5.38); VITAMIN B12 SERUM 954 pg/mL (211-911)
[2022-05-26 23:43] VITALS: BP 142/58
[2022-05-26] MEDS: HYDROCODONE/ACETAMINOPHEN 5/325MG TABLET PO PRN (23:53)
[2022-05-27 04:54] VITALS: BP 155/70
[2022-05-27] MEDS: BLOOD SUGAR DIAGNOSTIC STRIP TEST SCH ×4 (06:29→22:16)
[2022-05-27] MEDS: INSULIN LISPRO 100 UNITS/ML SUBCUT SCH ×4 (07:20→22:34)
[2022-05-27 08:00] VITALS: BP 141/61
[2022-05-27 08:43] LABS: BASOPHILS % 0.6 % (0.0-2.0); EOSINOPHILS % 2.4 % (0.0-5.0); HEMATOCRIT. 22.8 % (36.0-48.0); HEMOGLOBIN. 7.6 g/dL (12.0-16.0); LYMPHOCYTES % 29.4 % (20.0-50.0); MEAN CORPUSCULAR HEMOGLOBIN 29.9 pg (28.0-32.0); MEAN CORPUSCULAR VOLUME 89.7 fL (81.0-99.0); MEAN PLATELET VOLUME 10.3 fl (7.4-10.4); MONOCYTES % 11.7 % (2.0-8.0); NEUTROPHILS % 55.9 % (40.0-76.0); PLATELET 138 x1000/uL (130-400); RED BLOOD CELL COUNT 2.54 mill/uL (4.2-5.4); RED CELL DISTRIBUTION WIDTH 15.2 % (11.6-14.6)
[2022-05-27] MEDS: ATORVASTATIN CALCIUM 40MG TABLET PO SCH (09:00)
[2022-05-27] MEDS: LOSARTAN POTASSIUM 100 MG TABLET PO SCH (09:00)
[2022-05-27 09:03] LABS: *AMPHETAMINES SCREEN URINE NEGATIVE (NEGATIVE); *BARBITURATES SCREEN URINE NEGATIVE (NEGATIVE); *BENZODIAZEPINES SCREEN URINE NEGATIVE (NEGATIVE); *COCAINE SCREEN URINE NEGATIVE (NEGATIVE); CANNABINOID URINE SCREEN NEGATIVE (NEGATIVE); METHADONE URINE SCREEN NEGATIVE (NEGATIVE); OPIATES URINE SCREEN NEGATIVE (NEGATIVE); PHENCYCLIDINE URINE SCREEN NEGATIVE (NEGATIVE)
[2022-05-27 09:07] LABS: CHLORIDE 108 mEq/L (98-107)
[2022-05-27] MEDS: ISOSORBIDE DINITRATE 30MG TABLET PO SCH ×3 (09:51→17:00)
[2022-05-27] MEDS: FAMOTIDINE 20MG TABLET PO SCH (09:51)
[2022-05-27] MEDS: FERROUS SULFATE 325MG TABLET PO SCH (09:51)
[2022-05-27] MEDS: AMLODIPINE 5MG TABLET PO SCH (09:59)
[2022-05-27 12:00] VITALS: BP 140/57
[2022-05-27 16:00] VITALS: BP 127/72
[2022-05-27] MEDS: SUCRALFATE 1 G/10 ML UDC PO SCH ×2 (17:43→22:16)
[2022-05-27 17:49] VITALS: BP 132/71
[2022-05-27 20:30] VITALS: BP 160/61
[2022-05-27] MEDS: HYDROCODONE/ACETAMINOPHEN 5/325MG TABLET PO PRN (22:28)
[2022-05-28] VITALS: BP 125/58
[2022-05-28 04:00] VITALS: BP 145/87
[2022-05-28] MEDS: BLOOD SUGAR DIAGNOSTIC STRIP TEST SCH ×2 (06:39→11:50)
[2022-05-28] MEDS: SUCRALFATE 1 G/10 ML UDC PO SCH ×2 (06:39→12:54)
[2022-05-28] MEDS: INSULIN LISPRO 100 UNITS/ML SUBCUT SCH ×2 (06:40→13:35)
[2022-05-28 07:23] LABS: BASOPHILS % 0.4 % (0.0-2.0); EOSINOPHILS % 2.4 % (0.0-5.0); HEMATOCRIT. 23.7 % (36.0-48.0); HEMOGLOBIN. 7.7 g/dL (12.0-16.0); LYMPHOCYTES % 23.6 % (20.0-50.0); MEAN CORPUSCULAR HEMOGLOBIN 29.3 pg (28.0-32.0); MEAN PLATELET VOLUME 10.4 fl (7.4-10.4); MONOCYTES % 12.2 % (2.0-8.0); NEUTROPHILS % 61.4 % (40.0-76.0); PLATELET 150 x1000/uL (130-400); RED BLOOD CELL COUNT 2.63 mill/uL (4.2-5.4); RED CELL DISTRIBUTION WIDTH 15.3 % (11.6-14.6)
[2022-05-28 07:28] LABS: CHLORIDE 106 mEq/L (98-107)
[2022-05-28 08:00] VITALS: BP 124/56
[2022-05-28] MEDS: FERROUS SULFATE 325MG TABLET PO SCH (08:24)
[2022-05-28] MEDS: FAMOTIDINE 20MG TABLET PO SCH (08:24)
[2022-05-28] MEDS: LOSARTAN POTASSIUM 100 MG TABLET PO SCH (08:24)
[2022-05-28] MEDS: ISOSORBIDE DINITRATE 30MG TABLET PO SCH ×2 (08:24→12:55)
[2022-05-28] MEDS: ATORVASTATIN CALCIUM 40MG TABLET PO SCH (08:25)
[2022-05-28] MEDS: AMLODIPINE 5MG TABLET PO SCH (08:36)
[2022-05-28] MEDS ORDERED: ZOLPIDEM TARTRATE 5MG TABLET PO PRN (11:00)
[2022-05-28 12:00] VITALS: BP 110/50
[2022-05-28 16:28] VITALS: BP 124/56
== END 2022-05-28 19:25 | disposition home or self-care (01) | DRG 280 ==
LOC: ER 23:04 → MICUSO 05-26 01:27 → EDBEDREQ 05-26 01:32 → EDBEDREQTM 05-26 01:32 → 3WST 05-26 14:56
PROVIDERS: ADMIT Hospitalist; ATTEND Hospitalist
DX: I13.0 Hypertensive heart and chronic kidney disease with heart failure and stage 1 through stage 4 chronic kidney disease, or unspecified chronic kidney disease (principal); E43 Unspecified severe protein-calorie malnutrition; I21.4 Non-ST elevation (NSTEMI) myocardial infarction; I50.23 Acute on chronic systolic (congestive) heart failure; K92.2 Gastrointestinal hemorrhage, unspecified; N18.4 Chronic kidney disease, stage 4 (severe); D62 Acute posthemorrhagic anemia; I25.10 Atherosclerotic heart disease of native coronary artery without angina pectoris; E78.1 Pure hyperglyceridemia; E78.5 Hyperlipidemia, unspecified; M19.021 Primary osteoarthritis, right elbow; D72.819 Decreased white blood cell count, unspecified; E11.22 Type 2 diabetes mellitus with diabetic chronic kidney disease; E11.65 Type 2 diabetes mellitus with hyperglycemia; Z20.822 Contact with and (suspected) exposure to COVID-19; F41.9 Anxiety disorder, unspecified; R74.01 Elevation of levels of liver transaminase levels; K80.20 Calculus of gallbladder without cholecystitis without obstruction; D63.1 Anemia in chronic kidney disease; K21.9 Gastro-esophageal reflux disease without esophagitis; F10.91 Alcohol use, unspecified, in remission; Z79.899 Other long term (current) drug therapy; Z95.2 Presence of prosthetic heart valve; Z95.1 Presence of aortocoronary bypass graft; Z88.0 Allergy status to penicillin; Z87.11 Personal history of peptic ulcer disease; Z79.4 Long term (current) use of insulin; Z68.25 Body mass index [BMI] 25.0-25.9, adult; Z79.82 Long term (current) use of aspirin; Z87.891 Personal history of nicotine dependence
CPT/HCPCS: 36415; 71045; 74176; 76700; 80053; 80061; 80305; 81003; 82550; 82553; 82607; 82746; 82962; 83036; 83540; 83550; 83735; 83880; 84100; 84439; 84443; 84484; 85025; 85044; 87426; 87804; 93005; 93306; 93970; 99291; J1644; J1815; J7040

== ENCOUNTER 2022-08-02 16:53 | Emergency (ER) | payer MEDICARE, MEDICAID ==
[~2022-08-02] VITALS: Ht 162.6 cm; Wt 68.1 kg
[~2022-08-02 16:53] MED LIST changes: +ISOS20TA8 PO; +LOSA100T32 PO; -LOSA25TA3 PO
[2022-08-02] MEDS ORDERED: SODIUM CHLORIDE 0.9% 1,000 ML IV ONE (21:15)
[2022-08-02] MEDS ORDERED: FAMOTIDINE 20MG/2ML VIAL IV ONE (21:15)
[2022-08-02] MEDS ORDERED: ONDANSETRON HCL 4MG/2ML INJ IV ONE (21:15)
[2022-08-02] MEDS ORDERED: MAGNESIUM/ALUMINUM HYDROXIDE/SIMETHICONE 30ML UDC PO ONE (21:15)
[2022-08-02 21:30] LABS: HEMATOCRIT. 25.8 % (36.0-48.0); HEMOGLOBIN. 8.2 g/dL (12.0-16.0); MEAN CORPUSCULAR HEMOGLOBIN 29.7 pg (28.0-32.0); MEAN CORPUSCULAR VOLUME 93.3 fL (81.0-99.0); MEAN PLATELET VOLUME 10.7 fl (7.4-10.4); PLATELET 152 x1000/uL (130-400); RED BLOOD CELL COUNT 2.76 mill/uL (4.2-5.4); RED CELL DISTRIBUTION WIDTH 16.7 % (11.6-14.6)
[2022-08-02 21:39] LABS: PROTHROMBIN TIME 11.2 sec (9.6-11.0)
[2022-08-02 21:44] LABS: CHLORIDE 105 mEq/L (98-107)
[2022-08-02] MEDS ORDERED: MORPHINE SULFATE 2 MG/ML CPJ (NOT FOR IM USE) IV ONE (22:00)
[2022-08-02 22:48] LABS: BG BASE EXCESS -4.8 mmol/L (-2.0-2.0); BG CARBOXYHEMOGLOBIN 0.8 % (0.5-1.5); BG DEOXYHEMOGLOBIN 2.7 % (0.0-5.0); BG FRACTION INSPIRED OXYGEN 21; BG HCO3 ACT 18.5 mmol/L (22.0-26.0); BG METHEMOGLOBIN 0.2 % (0.0-1.5); BG OXYGEN SATURATION 97.3 % (92.0-98.5); BG OXYHEMOGLOBIN 96.3 % (94.0-97.0); BG PCO2 27.3 mmHg (35.0-45.0); BG PH 7.448 (7.350-7.450); BG PO2 101.1 mmHg (75.0-100.0); BG SAMPLE SITE RIGHT RADIAL; BG VENT MODE ROOM AIR
[2022-08-02 22:52] LABS: PLATELET ESTIMATE NORMAL
[2022-08-02] MEDS: INSULIN REGULAR (HUMULIN R) 300UNITS/3ML VIAL SUBCUT NR (23:15)
[2022-08-02] MEDS ORDERED: MORPHINE SULFATE 4 MG/ML CPJ (NOT FOR IM USE) IV NR (23:30)
[2022-08-02] MEDS ORDERED: SODIUM CHLORIDE 0.9% 1,000 ML IV NR (23:30)
[2022-08-03] MEDS ORDERED: ENOXAPARIN 80MG/0.8ML SYR SUBCUT ONE (02:45)
[2022-08-03] MEDS: INSULIN REGULAR (HUMULIN R) 300UNITS/3ML VIAL SUBCUT NR (04:06)
[2022-08-03] MEDS ORDERED: MORPHINE SULFATE 4 MG/ML CPJ (NOT FOR IM USE) IV ONE (04:15)
[2022-08-03 05:00] VITALS: BP 137/65
== END 2022-08-03 05:38 | disposition left against medical advice (07) ==
LOC: ER 16:53
DX: K29.70 Gastritis, unspecified, without bleeding (principal); E11.22 Type 2 diabetes mellitus with diabetic chronic kidney disease; I12.9 Hypertensive chronic kidney disease with stage 1 through stage 4 chronic kidney disease, or unspecified chronic kidney disease; N18.9 Chronic kidney disease, unspecified; I25.10 Atherosclerotic heart disease of native coronary artery without angina pectoris; Z98.61 Coronary angioplasty status; Z98.890 Other specified postprocedural states; Z88.0 Allergy status to penicillin
CPT/HCPCS: 36415; 36600; 71045; 74176; 76705; 80053; 82010; 82375; 82805; 82962; 83605; 83690; 84484; 85025; 85610; 93005; 96361; 96372; 96374; 96375; 96376; 99285; J1815; J2270; J2405; J3490; J7030

== ENCOUNTER 2022-09-06 08:58 | Inpatient (IN) | payer MEDICARE, MEDICAID ==
[~2022-09-06] VITALS: Ht 165.1 cm; Wt 67.6 kg
[2022-09-06] MEDS ORDERED: MORPHINE SULFATE 4 MG/ML CPJ (NOT FOR IM USE) IV STA (09:23)
[2022-09-06] MEDS ORDERED: ONDANSETRON HCL 4MG/2ML INJ IV STA (09:23)
[2022-09-06 10:20] LABS: BASOPHILS % 0.2 % (0.0-2.0); EOSINOPHILS % 0.4 % (0.0-5.0); HEMATOCRIT. 24.8 % (36.0-48.0); HEMOGLOBIN. 8.3 g/dL (12.0-16.0); LYMPHOCYTES % 11.5 % (20.0-50.0); MEAN CORPUSCULAR VOLUME 92.5 fL (81.0-99.0); MEAN PLATELET VOLUME 10.1 fl (7.4-10.4); MONOCYTES % 10.2 % (2.0-8.0); NEUTROPHILS % 77.7 % (40.0-76.0); PLATELET 156 x1000/uL (130-400); RED BLOOD CELL COUNT 2.68 mill/uL (4.2-5.4); RED CELL DISTRIBUTION WIDTH 16.4 % (11.6-14.6)
[2022-09-06 10:27] LABS: CHLORIDE 106 mEq/L (98-107)
[2022-09-06 10:28] LABS: PROTHROMBIN TIME 10.9 sec (9.6-11.0)
[2022-09-06] MEDS ORDERED: SODIUM CHLORIDE 0.9% 1,000 ML IV ONE (11:15)
[2022-09-06] MEDS ORDERED: MAGNESIUM/ALUMINUM HYDROXIDE/SIMETHICONE 30ML UDC PO PRN (13:45)
[2022-09-06] MEDS ORDERED: HYDROCODONE/ACETAMINOPHEN 7.5/325MG TABLET PO PRN (13:45)
[2022-09-06] MEDS ORDERED: DEXTROSE 50% WATER 50ML SYRINGE IV PRN (13:45)
[2022-09-06] MEDS ORDERED: GUAIFENESIN 200MG/10ML SUGAR FREE UDC PO PRN (13:45)
[2022-09-06] MEDS ORDERED: IPRATROPIUM/ALBUTEROL 0.5-3(2.5)MG/3ML NEB HHN PRN (13:45)
[2022-09-06] MEDS ORDERED: DOCUSATE SODIUM 100MG CAPSULE PO PRN (13:45)
[2022-09-06] MEDS ORDERED: ONDANSETRON HCL 4MG/2ML INJ IV PRN (13:45)
[2022-09-06] MEDS ORDERED: ACETAMINOPHEN 325MG TABLET PO PRN ×2 (13:45)
[2022-09-06] MEDS ORDERED: NALOXONE HCL 0.4MG/ML VIAL IV PRN (14:45)
[2022-09-06] MEDS ORDERED: CEFTRIAXONE 1GM PREMIX 50 ML IV SCH (15:00)
[2022-09-06] MEDS ORDERED: MORPHINE SULFATE 4 MG/ML CPJ (NOT FOR IM USE) IV NR (16:15)
[2022-09-06] MEDS: FUROSEMIDE 40MG/4ML VIAL IV SCH (17:26)
[2022-09-06] MEDS: PANTOPRAZOLE SODIUM 40 MG/VIAL IV SCH ×2 (17:37→23:42)
[2022-09-06] MEDS: METRONIDAZOLE 500 MG PREMIX 100 ML IV SCH (17:37)
[2022-09-06] MEDS: SODIUM CHLORIDE 0.45% 1,000 ML IV SCH (17:38)
[2022-09-06] MEDS: AMLODIPINE 5MG TABLET PO SCH (17:38)
[2022-09-06] MEDS: BLOOD SUGAR DIAGNOSTIC STRIP TEST SCH ×2 (17:45→21:00)
[2022-09-06] MEDS: INSULIN LISPRO 100 UNITS/ML SUBCUT SCH ×2 (17:48→21:00)
[2022-09-06 17:57] LABS: CREATINE KINASE 47 IU/L (26-192); CREATINE KINASE MB FRACTION 1.2 ng/mL (0.5-3.6)
[2022-09-06 18:20] LABS: VITAMIN B12 SERUM 746 pg/mL (211-911)
[2022-09-06 18:23] LABS: FOLIC ACID (FOLATE) SERUM > 20.00 ng/mL (>5.38)
[2022-09-06 18:39] LABS: FERRITIN 92 ng/mL (10-291)
[2022-09-06 19:36] LABS: PHOSPHORUS 5.1 mg/dL (2.5-4.9)
[2022-09-06 19:46] LABS: TOTAL IRON BINDING CAPACITY 271 ug/dL (250-450)
[2022-09-06 20:00] VITALS: BP 166/56
[2022-09-06 21:38] LABS: AMYLASE 2246 IU/L (25-115)
[2022-09-06 22:00] VITALS: BP 166/56
[2022-09-06] MEDS: HYDROCODONE/ACETAMINOPHEN 5/325MG TABLET PO PRN (23:41)
[2022-09-06] MEDS: ATORVASTATIN CALCIUM 40MG TABLET PO SCH (23:41)
[2022-09-06] MEDS: INSULIN GLARGINE 100 UNITS/ML SUBCUT SCH (23:43)
[2022-09-07] VITALS: BP 148/52
[2022-09-07] MEDS ORDERED: METRONIDAZOLE 500 MG PREMIX 100 ML IV SCH (01:00)
[2022-09-07 01:14] LABS: CREATINE KINASE 50 IU/L (26-192); CREATINE KINASE MB FRACTION < 1.0 ng/mL (0.5-3.6); ETHANOL BLOOD < 10 mg/dL
[2022-09-07] MEDS: SODIUM CHLORIDE 0.45% 1,000 ML IV SCH (01:15)
[2022-09-07 04:00] VITALS: BP 156/71
[2022-09-07] MEDS: HYDROCODONE/ACETAMINOPHEN 5/325MG TABLET PO PRN (06:20)
[2022-09-07 07:20] LABS: HEMATOCRIT. 24.7 % (36.0-48.0); HEMOGLOBIN. 8.3 g/dL (12.0-16.0); MEAN CORPUSCULAR HEMOGLOBIN 30.8 pg (28.0-32.0); MEAN CORPUSCULAR VOLUME 91.8 fL (81.0-99.0); MEAN PLATELET VOLUME 10.5 fl (7.4-10.4); PLATELET 122 x1000/uL (130-400); RED BLOOD CELL COUNT 2.69 mill/uL (4.2-5.4); RED CELL DISTRIBUTION WIDTH 16.3 % (11.6-14.6)
[2022-09-07] MEDS: BLOOD SUGAR DIAGNOSTIC STRIP TEST SCH ×3 (07:40→21:00)
[2022-09-07 07:44] LABS: CHLORIDE 107 mEq/L (98-107)
[2022-09-07] MEDS: INSULIN LISPRO 100 UNITS/ML SUBCUT SCH ×4 (07:50→21:00)
[2022-09-07 08:00] VITALS: BP 162/60
[2022-09-07 08:02] LABS: AMYLASE 728 IU/L (25-115); HDL CHOLESTEROL 51 mg/dL (40-59); LDL CHOLESTEROL 84 mg/dL (5-100); T4 FREE 1.16 ng/dL (0.76-1.46)
[2022-09-07] MEDS: CLOPIDOGREL 75MG TABLET PO SCH (09:00)
[2022-09-07] MEDS ORDERED: ASPIRIN 81MG TABLET PO SCH (09:00)
[2022-09-07] MEDS: FUROSEMIDE 40MG/4ML VIAL IV SCH (09:00)
[2022-09-07] MEDS: AMLODIPINE 5MG TABLET PO SCH (09:00)
[2022-09-07] MEDS: PANTOPRAZOLE SODIUM 40 MG/VIAL IV SCH ×2 (09:00→22:24)
[2022-09-07] MEDS: METRONIDAZOLE 500 MG PREMIX 100 ML IV SCH ×2 (11:30→22:24)
[2022-09-07] MEDS: MORPHINE SULFATE 2 MG/ML CPJ (NOT FOR IM USE) IV PRN (11:37)
[2022-09-07 12:00] VITALS: BP 124/67
[2022-09-07 13:16] LABS: HEPATITIS B SURFACE ANTIGEN NEGATIVE
[2022-09-07 15:21] LABS: PLATELET ESTIMATE SLIGHTLY DECREASED
[2022-09-07] MEDS: LEVOFLOXACIN 500MG TABLET PO SCH (15:29)
[2022-09-07 16:00] VITALS: BP 163/67
[2022-09-07 20:00] VITALS: BP 175/69
[2022-09-07] MEDS: ATORVASTATIN CALCIUM 40MG TABLET PO SCH (22:25)
[2022-09-07] MEDS: CLONIDINE 0.1MG TABLET PO PRN (22:25)
[2022-09-07] MEDS: INSULIN GLARGINE 100 UNITS/ML SUBCUT SCH (23:37)
[2022-09-08] VITALS: BP 169/60
[2022-09-08] MEDS: MORPHINE SULFATE 2 MG/ML CPJ (NOT FOR IM USE) IV PRN ×3 (00:22→19:14)
[2022-09-08] MEDS: METRONIDAZOLE 500 MG PREMIX 100 ML IV SCH ×4 (02:33→19:18)
[2022-09-08 04:00] VITALS: BP 165/62
[2022-09-08] MEDS: CLONIDINE 0.1MG TABLET PO PRN (04:42)
[2022-09-08 07:10] LABS: HEMATOCRIT. 21.7 % (36.0-48.0); HEMOGLOBIN. 7.3 g/dL (12.0-16.0); MEAN CORPUSCULAR HEMOGLOBIN 31.3 pg (28.0-32.0); MEAN CORPUSCULAR VOLUME 92.9 fL (81.0-99.0); MEAN PLATELET VOLUME 10.3 fl (7.4-10.4); PLATELET 111 x1000/uL (130-400); RED BLOOD CELL COUNT 2.34 mill/uL (4.2-5.4); RED CELL DISTRIBUTION WIDTH 15.9 % (11.6-14.6)
[2022-09-08 08:00] VITALS: BP 153/60
[2022-09-08] MEDS: BLOOD SUGAR DIAGNOSTIC STRIP TEST SCH ×4 (08:15→21:00)
[2022-09-08 08:24] LABS: CHLORIDE 108 mEq/L (98-107)
[2022-09-08 08:37] LABS: AMYLASE 230 IU/L (25-115)
[2022-09-08] MEDS: CLOPIDOGREL 75MG TABLET PO SCH (09:58)
[2022-09-08] MEDS: FUROSEMIDE 40MG/4ML VIAL IV SCH (09:58)
[2022-09-08] MEDS: AMLODIPINE 5MG TABLET PO SCH ×2 (09:58→19:18)
[2022-09-08] MEDS: PANTOPRAZOLE SODIUM 40 MG/VIAL IV SCH ×2 (09:58→21:18)
[2022-09-08 10:28] LABS: PLATELET ESTIMATE SLIGHTLY DECREASED
[2022-09-08 12:00] VITALS: BP 166/59
[2022-09-08] MEDS: INSULIN LISPRO 100 UNITS/ML SUBCUT SCH ×3 (12:50→21:00)
[2022-09-08 16:00] VITALS: BP 165/68
[2022-09-08] MEDS: DOCUSATE SODIUM 250MG CAPSULE PO SCH (19:18)
[2022-09-08 20:00] VITALS: BP 178/50
[2022-09-08] MEDS: INSULIN GLARGINE 100 UNITS/ML SUBCUT SCH (21:17)
[2022-09-08] MEDS: ATORVASTATIN CALCIUM 40MG TABLET PO SCH (21:18)
[2022-09-09] VITALS: BP 166/60
[2022-09-09] MEDS: MORPHINE SULFATE 2 MG/ML CPJ (NOT FOR IM USE) IV PRN ×2 (01:49→09:28)
[2022-09-09] MEDS: CLONIDINE 0.1MG TABLET PO PRN ×2 (01:57→09:05)
[2022-09-09] MEDS: METRONIDAZOLE 500 MG PREMIX 100 ML IV SCH ×2 (02:01→10:00)
[2022-09-09 04:00] VITALS: BP 165/49
[2022-09-09 06:52] LABS: HEMATOCRIT. 22.5 % (36.0-48.0); HEMOGLOBIN. 7.6 g/dL (12.0-16.0); MEAN CORPUSCULAR HEMOGLOBIN 30.9 pg (28.0-32.0); MEAN CORPUSCULAR VOLUME 91.9 fL (81.0-99.0); MEAN PLATELET VOLUME 10.2 fl (7.4-10.4); PLATELET 119 x1000/uL (130-400); RED BLOOD CELL COUNT 2.45 mill/uL (4.2-5.4); RED CELL DISTRIBUTION WIDTH 15.6 % (11.6-14.6)
[2022-09-09] MEDS: BLOOD SUGAR DIAGNOSTIC STRIP TEST SCH ×2 (06:54→12:11)
[2022-09-09 07:18] LABS: CHLORIDE 110 mEq/L (98-107)
[2022-09-09 07:30] LABS: AMYLASE 134 IU/L (25-115); PHOSPHORUS 3.2 mg/dL (2.5-4.9)
[2022-09-09] MEDS: INSULIN LISPRO 100 UNITS/ML SUBCUT SCH ×2 (07:50→12:21)
[2022-09-09 08:00] VITALS: BP 173/49
[2022-09-09] MEDS: AMLODIPINE 5MG TABLET PO SCH (09:05)
[2022-09-09] MEDS: LEVOFLOXACIN 500MG TABLET PO SCH (09:05)
[2022-09-09] MEDS: DOCUSATE SODIUM 250MG CAPSULE PO SCH (09:05)
[2022-09-09] MEDS: CLOPIDOGREL 75MG TABLET PO SCH (09:06)
[2022-09-09] MEDS: HYDROCODONE/ACETAMINOPHEN 5/325MG TABLET PO PRN (09:06)
[2022-09-09] MEDS: FUROSEMIDE 40MG/4ML VIAL IV SCH (09:11)
[2022-09-09] MEDS: PANTOPRAZOLE SODIUM 40 MG/VIAL IV SCH (09:11)
[2022-09-09] MEDS ORDERED: ONDA8TAB13 PO (10:23)
[2022-09-09] MEDS ORDERED: TRAM100T40 PO (10:23)
[2022-09-09 10:36] LABS: PLATELET ESTIMATE DECREASED
[2022-09-09 11:59] VITALS: BP 132/50
[2022-09-09 12:00] VITALS: BP 132/50
[2022-09-09] MEDS ORDERED: IPRATROPIUM BROMIDE (0.02%) 0.5MG/2.5ML NEB HHN PRN (16:15)
[2022-09-09] MEDS ORDERED: ALBUTEROL (0.083%) 2.5MG/3ML NEB HHN PRN (16:15)
== END 2022-09-09 14:55 | disposition home or self-care (01) | DRG 444 ==
LOC: ER 08:58 → 6EST 12:33 → EDBEDREQTM 12:42 → EDBEDREQ 12:42 → ENRESERV 19:52
PROVIDERS: ADMIT Hospitalist; ATTEND Hospitalist
DX: K80.00 Calculus of gallbladder with acute cholecystitis without obstruction (principal); I21.A1 Myocardial infarction type 2; I85.01 Esophageal varices with bleeding; K85.10 Biliary acute pancreatitis without necrosis or infection; K27.4 Chronic or unspecified peptic ulcer, site unspecified, with hemorrhage; E46 Unspecified protein-calorie malnutrition; N18.4 Chronic kidney disease, stage 4 (severe); N17.9 Acute kidney failure, unspecified; I50.32 Chronic diastolic (congestive) heart failure; I13.0 Hypertensive heart and chronic kidney disease with heart failure and stage 1 through stage 4 chronic kidney disease, or unspecified chronic kidney disease; E11.22 Type 2 diabetes mellitus with diabetic chronic kidney disease; B19.20 Unspecified viral hepatitis C without hepatic coma; D63.8 Anemia in other chronic diseases classified elsewhere; E78.5 Hyperlipidemia, unspecified; I25.10 Atherosclerotic heart disease of native coronary artery without angina pectoris; R74.01 Elevation of levels of liver transaminase levels; K57.30 Diverticulosis of large intestine without perforation or abscess without bleeding; Z79.4 Long term (current) use of insulin; Z87.891 Personal history of nicotine dependence; Z88.0 Allergy status to penicillin; Z95.1 Presence of aortocoronary bypass graft; Z95.5 Presence of coronary angioplasty implant and graft; Z82.49 Family history of ischemic heart disease and other diseases of the circulatory system; Z79.899 Other long term (current) drug therapy; Z68.24 Body mass index [BMI] 24.0-24.9, adult
CPT/HCPCS: 36415; 74176; 74181; 76700; 78227; 80053; 80061; 80076; 80320; 82150; 82248; 82550; 82553; 82607; 82728; 82746; 82962; 82977; 83036; 83540; 83550; 83735; 83880; 83970; 84100; 84439; 84443; 84484; 85025; 85044; 86803; 87340; 93005; 93306; 93970; 97162; 97166; 99285; A9537; C9113; J0696; J1815; J1940; J2270; J2405; J3490; J7030; G0480

== ENCOUNTER 2022-11-11 16:24 | Inpatient (IN) | payer MEDICARE, MEDICAID ==
[~2022-11-11] VITALS: Ht 165.1 cm; Wt 67.4 kg
[~2022-11-11 16:24] MED LIST changes: -LEVO750T68 MT; -LOSA100T32 PO; +ONDA8TAB13 PO; +TRAM100T40 PO
[2022-11-11 17:09] LABS: BASOPHILS % 0.5 % (0.0-2.0); EOSINOPHILS % 0.3 % (0.0-5.0); HEMATOCRIT. 28.4 % (36.0-48.0); HEMOGLOBIN. 9.3 g/dL (12.0-16.0); LYMPHOCYTES % 14.2 % (20.0-50.0); MEAN CORPUSCULAR HEMOGLOBIN 30.3 pg (28.0-32.0); MEAN CORPUSCULAR VOLUME 92.5 fL (81.0-99.0); MEAN PLATELET VOLUME 10.6 fl (7.4-10.4); MONOCYTES % 5.5 % (2.0-8.0); NEUTROPHILS % 79.5 % (40.0-76.0); PLATELET 152 x1000/uL (130-400); RED BLOOD CELL COUNT 3.07 mill/uL (4.2-5.4); RED CELL DISTRIBUTION WIDTH 14.6 % (11.6-14.6)
[2022-11-11 17:17] LABS: CHLORIDE 108 mEq/L (98-107)
[2022-11-11 17:29] LABS: CLARITY URINE CLEAR (CLEAR); COLOR URINE YELLOW (YELLOW); KETONES URINE TRACE (NEGATIVE); LEUKOCYTE ESTERASE URINE NEGATIVE (NEGATIVE); NITRITE URINE NEGATIVE (NEGATIVE); OCCULT BLOOD URINE TRACE (NEGATIVE); PH URINE 7.5 (4.5-8.0); PROTEIN URINE 4+ (NEGATIVE); SPECIFIC GRAVITY URINE 1.019 (1.005-1.030); UROBILINOGEN URINE 0.2 E.U./dL (0.2-1.0)
[2022-11-11] MEDS ORDERED: MORPHINE SULFATE 4 MG/ML CPJ (NOT FOR IM USE) IV ONE (21:45)
[2022-11-12] MEDS ORDERED: FUROSEMIDE 40MG/4ML VIAL IVP ONE (02:30)
[2022-11-12] MEDS: CLONIDINE 0.1MG TABLET PO PRN ×3 (04:40→18:01)
[2022-11-12 08:00] VITALS: BP 181/58
[2022-11-12 10:15] VITALS: BP 178/59
[2022-11-12] MEDS ORDERED: FERR325T6 PO (11:06)
[2022-11-12] MEDS ORDERED: PANT40TA51 PO (11:06)
[2022-11-12] MEDS ORDERED: FURO40TA5 PO (11:06)
[2022-11-12] MEDS ORDERED: ASPI-1406 PO (11:06)
[2022-11-12] MEDS ORDERED: SODI650T PO (11:06)
[2022-11-12] MEDS ORDERED: DOCU100T PO (11:06)
[2022-11-12] MEDS ORDERED: AMLO10TA80 PO (11:06)
[2022-11-12] MEDS ORDERED: ISOS30TA12 PO (11:06)
[2022-11-12] MEDS ORDERED: SITA25TA3 PO (11:06)
[2022-11-12] MEDS ORDERED: ATOR40TA70 MT (11:06)
[2022-11-12] MEDS ORDERED: HYDR-4135 PO (11:06)
[2022-11-12] MEDS ORDERED: SENN-155 PO (11:06)
[2022-11-12] MEDS ORDERED: ASPIRIN 81MG EC TABLET PO SCH (11:15)
[2022-11-12] MEDS ORDERED: DOCUSATE SODIUM 100MG CAPSULE PO PRN (11:15)
[2022-11-12] MEDS ORDERED: ONDANSETRON HCL 4MG/2ML INJ IV PRN (11:15)
[2022-11-12] MEDS ORDERED: DEXTROSE 50% WATER 50ML SYRINGE IV PRN ×2 (11:15)
[2022-11-12] MEDS ORDERED: ACETAMINOPHEN 325MG TABLET PO PRN (11:15)
[2022-11-12] MEDS: ENOXAPARIN 30MG/0.3ML SYR SUBCUT SCH (11:27)
[2022-11-12] MEDS ORDERED: NALOXONE HCL 0.4MG/ML VIAL IV PRN (11:30)
[2022-11-12 12:00] VITALS: BP 158/50
[2022-11-12] MEDS: HYDROCODONE/ACETAMINOPHEN 5/325MG TABLET PO PRN (12:16)
[2022-11-12] MEDS: BLOOD SUGAR DIAGNOSTIC STRIP TEST SCH ×3 (12:17→21:00)
[2022-11-12 12:58] LABS: *AMPHETAMINES SCREEN URINE NEGATIVE (NEGATIVE); *BARBITURATES SCREEN URINE NEGATIVE (NEGATIVE); *BENZODIAZEPINES SCREEN URINE NEGATIVE (NEGATIVE); *COCAINE SCREEN URINE NEGATIVE (NEGATIVE); CANNABINOID URINE SCREEN NEGATIVE (NEGATIVE); METHADONE URINE SCREEN NEGATIVE (NEGATIVE); OPIATES URINE SCREEN NEGATIVE (NEGATIVE); PHENCYCLIDINE URINE SCREEN NEGATIVE (NEGATIVE)
[2022-11-12] MEDS: ISOSORBIDE DINITRATE 20MG TABLET PO SCH ×2 (13:00→17:58)
[2022-11-12] MEDS: INSULIN LISPRO 100 UNITS/ML SUBCUT SCH ×3 (13:10→21:00)
[2022-11-12] MEDS: HYDRALAZINE HCL 50MG TABLET PO SCH ×2 (13:12→21:48)
[2022-11-12] MEDS ORDERED: *PATIENT'S OWN MEDICATION STORAGE XX SCH (14:15)
[2022-11-12 16:00] VITALS: BP 174/65
[2022-11-12 17:02] LABS: PHOSPHORUS 3.7 mg/dL (2.5-4.9)
[2022-11-12] MEDS: SODIUM BICARBONATE 650 MG TABLET PO SCH (17:58)
[2022-11-12] MEDS: FUROSEMIDE 40MG/4ML VIAL IVP SCH (17:59)
[2022-11-12] MEDS: OMEPRAZOLE 20MG CAPSULE EXTENDED RELEASE PO SCH (18:01)
[2022-11-12 20:00] VITALS: BP 166/78
[2022-11-12] MEDS: INSULIN GLARGINE 100 UNITS/ML SUBCUT SCH (21:50)
[2022-11-13] VITALS: BP 172/53
[2022-11-13] MEDS: CLONIDINE 0.1MG TABLET PO PRN (00:30)
[2022-11-13 04:00] VITALS: BP 167/56
[2022-11-13] MEDS: HYDRALAZINE HCL 50MG TABLET PO SCH ×3 (05:09→22:12)
[2022-11-13] MEDS: FUROSEMIDE 40MG/4ML VIAL IVP SCH ×2 (05:13→18:28)
[2022-11-13 05:57] LABS: BASOPHILS % 0.7 % (0.0-2.0); EOSINOPHILS % 3.7 % (0.0-5.0); HEMATOCRIT. 24.2 % (36.0-48.0); HEMOGLOBIN. 8.2 g/dL (12.0-16.0); LYMPHOCYTES % 16.1 % (20.0-50.0); MEAN CORPUSCULAR HEMOGLOBIN 30.8 pg (28.0-32.0); MEAN CORPUSCULAR VOLUME 90.7 fL (81.0-99.0); MEAN PLATELET VOLUME 10.1 fl (7.4-10.4); MONOCYTES % 10.7 % (2.0-8.0); NEUTROPHILS % 68.8 % (40.0-76.0); PLATELET 121 x1000/uL (130-400); RED BLOOD CELL COUNT 2.66 mill/uL (4.2-5.4); RED CELL DISTRIBUTION WIDTH 14.3 % (11.6-14.6)
[2022-11-13] MEDS: AMLODIPINE 10MG TABLET PO SCH (06:00)
[2022-11-13 06:09] LABS: CHLORIDE 107 mEq/L (98-107)
[2022-11-13] MEDS: BLOOD SUGAR DIAGNOSTIC STRIP TEST SCH ×4 (07:20→21:00)
[2022-11-13] MEDS: INSULIN LISPRO 100 UNITS/ML SUBCUT SCH ×4 (07:20→21:00)
[2022-11-13 07:46] LABS: HDL CHOLESTEROL 38 mg/dL (40-59); PHOSPHORUS 3.3 mg/dL (2.5-4.9); T4 FREE 1.38 ng/dL (0.76-1.46)
[2022-11-13 08:00] VITALS: BP 110/56
[2022-11-13] MEDS ORDERED: POTASSIUM CHLORIDE 20MEQ TABLET SR PO NR (08:00)
[2022-11-13 08:13] LABS: LDL CHOLESTEROL 76 mg/dL (5-100)
[2022-11-13] MEDS: SODIUM BICARBONATE 650 MG TABLET PO SCH ×2 (08:39→16:25)
[2022-11-13] MEDS: OMEPRAZOLE 20MG CAPSULE EXTENDED RELEASE PO SCH (08:40)
[2022-11-13] MEDS: ATORVASTATIN CALCIUM 40MG TABLET PO SCH (08:40)
[2022-11-13] MEDS: HYDROCODONE/ACETAMINOPHEN 5/325MG TABLET PO PRN (08:41)
[2022-11-13] MEDS: ISOSORBIDE DINITRATE 20MG TABLET PO SCH ×3 (08:42→17:00)
[2022-11-13] MEDS: ENOXAPARIN 30MG/0.3ML SYR SUBCUT SCH (08:43)
[2022-11-13] MEDS ORDERED: CLOPIDOGREL 75MG TABLET PO SCH (09:00)
[2022-11-13 12:00] VITALS: BP 132/57
[2022-11-13 16:00] VITALS: BP 144/52
[2022-11-13 20:00] VITALS: BP 141/48
[2022-11-13] MEDS: INSULIN GLARGINE 100 UNITS/ML SUBCUT SCH (22:12)
[2022-11-13] MEDS ORDERED: ZOLPIDEM TARTRATE 5MG TABLET PO PRN (22:30)
[2022-11-14] VITALS: BP 151/47
[2022-11-14] MEDS: HYDROCODONE/ACETAMINOPHEN 5/325MG TABLET PO PRN ×2 (00:31→07:14)
[2022-11-14 04:00] VITALS: BP 155/41
[2022-11-14] MEDS: FUROSEMIDE 40MG/4ML VIAL IVP SCH (05:53)
[2022-11-14] MEDS: HYDRALAZINE HCL 50MG TABLET PO SCH ×2 (05:54→13:22)
[2022-11-14 06:25] LABS: BASOPHILS % 0.4 % (0.0-2.0); EOSINOPHILS % 3.1 % (0.0-5.0); HEMATOCRIT. 23.7 % (36.0-48.0); LYMPHOCYTES % 14.8 % (20.0-50.0); MEAN CORPUSCULAR VOLUME 91.4 fL (81.0-99.0); MEAN PLATELET VOLUME 10.2 fl (7.4-10.4); MONOCYTES % 12.2 % (2.0-8.0); NEUTROPHILS % 69.5 % (40.0-76.0); PLATELET 120 x1000/uL (130-400); RED BLOOD CELL COUNT 2.59 mill/uL (4.2-5.4); RED CELL DISTRIBUTION WIDTH 14.2 % (11.6-14.6)
[2022-11-14 07:04] LABS: CHLORIDE 107 mEq/L (98-107)
[2022-11-14] MEDS: AMLODIPINE 10MG TABLET PO SCH (07:14)
[2022-11-14 07:15] LABS: PHOSPHORUS 3.1 mg/dL (2.5-4.9)
[2022-11-14] MEDS: BLOOD SUGAR DIAGNOSTIC STRIP TEST SCH ×2 (07:40→13:22)
[2022-11-14 08:00] VITALS: BP 136/49
[2022-11-14] MEDS: INSULIN LISPRO 100 UNITS/ML SUBCUT SCH ×2 (08:10→13:10)
[2022-11-14] MEDS: ATORVASTATIN CALCIUM 40MG TABLET PO SCH (10:29)
[2022-11-14] MEDS: OMEPRAZOLE 20MG CAPSULE EXTENDED RELEASE PO SCH (10:29)
[2022-11-14] MEDS: SODIUM BICARBONATE 650 MG TABLET PO SCH (10:29)
[2022-11-14] MEDS: ISOSORBIDE DINITRATE 20MG TABLET PO SCH ×2 (10:29→13:22)
[2022-11-14] MEDS: ENOXAPARIN 30MG/0.3ML SYR SUBCUT SCH (10:30)
[2022-11-14 12:00] VITALS: BP 122/59
[2022-11-14 14:24] VITALS: BP 122/59
== END 2022-11-14 16:41 | disposition home or self-care (01) | DRG 280 ==
LOC: ER 16:24 → EDBEDREQ 11-12 02:37 → ENRESERV 11-12 06:42 → 7WST 11-12 08:05
PROVIDERS: ADMIT Internal Medicine; ATTEND Internal Medicine
DX: I13.2 Hypertensive heart and chronic kidney disease with heart failure and with stage 5 chronic kidney disease, or end stage renal disease (principal); I21.4 Non-ST elevation (NSTEMI) myocardial infarction; E43 Unspecified severe protein-calorie malnutrition; I50.33 Acute on chronic diastolic (congestive) heart failure; J96.01 Acute respiratory failure with hypoxia; N18.6 End stage renal disease; K85.90 Acute pancreatitis without necrosis or infection, unspecified; E87.20 Acidosis, unspecified; K92.2 Gastrointestinal hemorrhage, unspecified; R18.8 Other ascites; E11.22 Type 2 diabetes mellitus with diabetic chronic kidney disease; I16.0 Hypertensive urgency; B19.20 Unspecified viral hepatitis C without hepatic coma; D63.8 Anemia in other chronic diseases classified elsewhere; D70.9 Neutropenia, unspecified; Z68.24 Body mass index [BMI] 24.0-24.9, adult; E78.5 Hyperlipidemia, unspecified; G89.29 Other chronic pain; I25.10 Atherosclerotic heart disease of native coronary artery without angina pectoris; K74.60 Unspecified cirrhosis of liver; I27.20 Pulmonary hypertension, unspecified; I35.1 Nonrheumatic aortic (valve) insufficiency; J44.9 Chronic obstructive pulmonary disease, unspecified; K80.20 Calculus of gallbladder without cholecystitis without obstruction; Z87.891 Personal history of nicotine dependence; Z88.0 Allergy status to penicillin; Z95.1 Presence of aortocoronary bypass graft; Z95.3 Presence of xenogenic heart valve; Z98.61 Coronary angioplasty status; Z82.49 Family history of ischemic heart disease and other diseases of the circulatory system; Z79.899 Other long term (current) drug therapy
CPT/HCPCS: 36415; 71045; 71250; 74176; 80048; 80053; 80061; 80076; 80305; 81003; 82962; 83036; 83735; 83880; 83970; 84100; 84439; 84443; 84484; 85025; 93005; 93306; 93970; 99285; J1650; J1815; J1940; J2270

== ENCOUNTER 2023-01-26 09:55 | Inpatient (IN) | payer MEDICARE, MEDICAID ==
[~2023-01-26] VITALS: Ht 162.6 cm; Wt 65.8 kg
[~2023-01-26 09:55] MED LIST changes: +AMLO10TA80 PO; +ASPI-1406 PO; +ATOR40TA70 MT; +DOCU100T PO; +FURO40TA5 PO; +HYDR-4135 PO; +ISOS30TA12 PO; +PANT40TA51 PO; +SENN-155 PO; +SITA25TA3 PO; +SODI650T PO
[2023-01-26 10:38] LABS: BASOPHILS % 0.3 % (0.0-2.0); EOSINOPHILS % 1.2 % (0.0-5.0); HEMATOCRIT. 22.9 % (36.0-48.0); HEMOGLOBIN. 7.2 g/dL (12.0-16.0); LYMPHOCYTES % 9.6 % (20.0-50.0); MEAN CORPUSCULAR HGB CONC 31.6 g/dL (31.0-37.0); MEAN CORPUSCULAR VOLUME 98.1 fL (81.0-99.0); MEAN PLATELET VOLUME 9.7 fl (7.4-10.4); MONOCYTES % 9.3 % (2.0-8.0); NEUTROPHILS % 79.6 % (40.0-76.0); PLATELET 157 x1000/uL (130-400); RED BLOOD CELL COUNT 2.33 mill/uL (4.2-5.4); RED CELL DISTRIBUTION WIDTH 17.5 % (11.6-14.6); WHITE BLOOD COUNT 8.3 x1000/uL (4.5-11.0)
[2023-01-26 10:43] LABS: CHLORIDE 112 mEq/L (98-107); INDEX HEMOLYSI 1 (1-3); INDEX ICTERIC 1 (1-4); INDEX LIPEMIC 1 (1-3); POTASSIUM 3.9 mEq/L (3.5-5.1); SODIUM 137 mEq/L (136-145)
[2023-01-26 10:53] LABS: ALANINE AMINOTRANSFERASE 43 IU/L (13-61); ALBUMIN 2.7 g/dL (3.4-5.0); ASPARTATE AMINOTRANSFERASE 55 IU/L (15-37); BILIRUBIN TOTAL 0.5 mg/dL (0.1-1.0); CALCIUM 8.8 mg/dL (8.5-10.1); CARBON DIOXIDE 16 mEq/L (21-32); GLUCOSE 106 mg/dL (70-105); NT PRO B-TYPE NATRIURETIC PEP 9933 pg/mL (5-125); PROTEIN TOTAL 8.4 g/dL (6.0-8.3); UREA NITROGEN BLOOD 77 mg/dL (7-21)
[2023-01-26 11:01] LABS: CREATININE 5.6 mg/dL (0.6-1.3); TROPONIN I HIGH SENSITIVITY 423 ng/L (<54)
[2023-01-26 13:00] VITALS: RESP 30
[2023-01-26 13:26] LABS: BG BASE EXCESS -8.1 mmol/L (-2.0-2.0); BG DEOXYHEMOGLOBIN 1.6 % (0.0-5.0); BG FRACTION INSPIRED OXYGEN 50; BG METHEMOGLOBIN 0.3 % (0.0-1.5); BG OXYGEN SATURATION 98.4 % (92.0-98.5); BG OXYHEMOGLOBIN 97.1 % (94.0-97.0); BG PCO2 27.9 mmHg (35.0-45.0); BG PH 7.377 (7.350-7.450); BG PO2 137.5 mmHg (75.0-100.0); BG SAMPLE SITE LEFT BRACHIAL; BG TOTAL HEMOGLOBIN 8.7 g/dL (12.0-18.0); BG TOTAL RESPIRATORY RATE 29 b/min; BG VENT MODE MASK - BIPAP
[2023-01-26] MEDS ORDERED: AZITHROMYCIN 500MG/250ML 250 ML IV NR (14:00)
[2023-01-26] MEDS ORDERED: NALOXONE HCL 0.4MG/ML VIAL IV PRN (19:45)
[2023-01-26 20:00] VITALS: BP 149/65; PULSE 73; RESP 17; TEMP 98.3
[2023-01-26] MEDS: MORPHINE SULFATE 2 MG/ML CPJ (NOT FOR IM USE) IV PRN (20:11)
[2023-01-26] MEDS ORDERED: CLONIDINE 0.1MG TABLET PO PRN (20:30)
[2023-01-26 20:53] VITALS: BP 182/74; PULSE 86; RESP 20; TEMP 98.6
[2023-01-26] MEDS ORDERED: DEXTROSE 50% WATER 50ML SYRINGE IV PRN (21:00)
[2023-01-26] MEDS: INSULIN LISPRO 100 UNITS/ML SUBCUT SCH (21:00)
[2023-01-26] MEDS: BLOOD SUGAR DIAGNOSTIC STRIP TEST SCH (21:00)
[2023-01-26] MEDS: FUROSEMIDE 100MG/10ML VIAL IVP SCH (21:44)
[2023-01-26 22:00] VITALS: BP 159/72; PULSE 77; RESP 19; TEMP 97.9
[2023-01-27] VITALS (15 sets, daily range): BP systolic 116–176; BP diastolic 42–95; PULSE 64–82; RESP 12–44; TEMP 97.8–98.9
[2023-01-27 00:02] LABS: CREATINE KINASE MB FRACTION 1.9 ng/mL (0.5-3.6)
[2023-01-27] MEDS ORDERED: ISOSORBIDE DINITRATE 30MG TABLET PO SCH ×2 (06:00→09:00)
[2023-01-27] MEDS: AMLODIPINE 10MG TABLET PO SCH (06:40)
[2023-01-27] MEDS: BLOOD SUGAR DIAGNOSTIC STRIP TEST SCH ×4 (07:30→20:09)
[2023-01-27] MEDS: INSULIN LISPRO 100 UNITS/ML SUBCUT SCH ×4 (08:00→20:09)
[2023-01-27] MEDS: ENOXAPARIN 30MG/0.3ML SYR SUBCUT SCH (08:00)
[2023-01-27 08:22] LABS: BASOPHILS % 0.5 % (0.0-2.0); DIFFERENTIAL COMMENT 0; EOSINOPHILS % 1.8 % (0.0-5.0); LYMPHOCYTES % 17.3 % (20.0-50.0); MEAN CORPUSCULAR HEMOGLOBIN 30.6 pg (28.0-32.0); MEAN CORPUSCULAR VOLUME 95.7 fL (81.0-99.0); MEAN PLATELET VOLUME 10.1 fl (7.4-10.4); MONOCYTES % 13.6 % (2.0-8.0); NEUTROPHILS % 66.8 % (40.0-76.0); PLATELET 110 x1000/uL (130-400); RED BLOOD CELL COUNT 1.96 mill/uL (4.2-5.4); WHITE BLOOD COUNT 3.4 x1000/uL (4.5-11.0)
[2023-01-27 08:39] LABS: HEMATOCRIT. 18.8 % (36.0-48.0)
[2023-01-27 08:47] LABS: BG CARBOXYHEMOGLOBIN 1.4 % (0.5-1.5); BG DEOXYHEMOGLOBIN 6.3 % (0.0-5.0); BG FRACTION INSPIRED OXYGEN 34; BG HCO3 ACT 18.2 mmol/L (22.0-26.0); BG METHEMOGLOBIN 0.3 % (0.0-1.5); BG OXYGEN SATURATION 93.6 % (92.0-98.5); BG PCO2 29.9 mmHg (35.0-45.0); BG PH 7.403 (7.350-7.450); BG SAMPLE SITE LEFT BRACHIAL; BG TOTAL HEMOGLOBIN 5.7 g/dL (12.0-18.0); BG VENT MODE NASAL CANNULA
[2023-01-27 08:56] LABS: POTASSIUM 4.3 mEq/L (3.5-5.1)
[2023-01-27] MEDS ORDERED: AMLODIPINE 5MG TABLET PO SCH (09:00)
[2023-01-27] MEDS ORDERED: LEVOFLOXACIN 500MG PREMIX 100 ML IV SCH (09:00)
[2023-01-27] MEDS ORDERED: ASPIRIN 81MG EC TABLET PO SCH (09:00)
[2023-01-27] MEDS ORDERED: CLOPIDOGREL 75MG TABLET PO SCH (09:00)
[2023-01-27 09:05] LABS: CALCIUM 8.4 mg/dL (8.5-10.1); CREATINE KINASE MB FRACTION 1.6 ng/mL (0.5-3.6)
[2023-01-27 09:31] LABS: CREATININE 5.8 mg/dL (0.6-1.3)
[2023-01-27] MEDS: FUROSEMIDE 100MG/10ML VIAL IVP SCH ×2 (11:04→19:51)
[2023-01-27] MEDS: LEVOFLOXACIN 500MG PREMIX 100 ML IV SCH (11:04)
[2023-01-27] MEDS: ATORVASTATIN CALCIUM 40MG TABLET PO SCH (11:05)
[2023-01-27] MEDS: OMEPRAZOLE 20MG CAPSULE EXTENDED RELEASE PO SCH (11:06)
[2023-01-27] MEDS: HYDRALAZINE HCL 50MG TABLET PO SCH ×3 (11:06→18:20)
[2023-01-27] MEDS: MORPHINE SULFATE 2 MG/ML CPJ (NOT FOR IM USE) IV PRN ×2 (11:08→19:51)
[2023-01-27] MEDS: SODIUM BICARBONATE 650 MG TABLET PO SCH ×2 (13:10→18:20)
[2023-01-27] MEDS ORDERED: ISOSORBIDE DINITRATE 10MG TABLET PO SCH (13:45)
[2023-01-27 17:01] LABS: INR 1.1; PROTHROMBIN TIME 11.4 sec (9.6-11.0)
[2023-01-27] MEDS: ISOSORBIDE DINITRATE 30MG TABLET PO SCH (18:19)
[2023-01-28] VITALS: BP 122/53; PULSE 72; RESP 12; TEMP 98.5
[2023-01-28 04:00] VITALS: BP 142/56; PULSE 73; RESP 17; TEMP 97.8
[2023-01-28 08:00] VITALS: BP 156/68; PULSE 75; RESP 18; TEMP 97.8
[2023-01-28] MEDS: INSULIN LISPRO 100 UNITS/ML SUBCUT SCH ×4 (08:00→20:43)
[2023-01-28] MEDS: ENOXAPARIN 30MG/0.3ML SYR SUBCUT SCH (08:00)
[2023-01-28] MEDS: BLOOD SUGAR DIAGNOSTIC STRIP TEST SCH ×4 (08:02→20:43)
[2023-01-28] MEDS: FUROSEMIDE 100MG/10ML VIAL IVP SCH ×2 (08:14→20:20)
[2023-01-28] MEDS: SODIUM BICARBONATE 650 MG TABLET PO SCH ×2 (08:14→16:32)
[2023-01-28] MEDS: OMEPRAZOLE 20MG CAPSULE EXTENDED RELEASE PO SCH (08:14)
[2023-01-28] MEDS: ISOSORBIDE DINITRATE 30MG TABLET PO SCH ×3 (08:14→16:32)
[2023-01-28] MEDS: HYDRALAZINE HCL 50MG TABLET PO SCH ×3 (08:15→16:32)
[2023-01-28] MEDS: AMLODIPINE 10MG TABLET PO SCH (08:15)
[2023-01-28] MEDS: ATORVASTATIN CALCIUM 40MG TABLET PO SCH (08:16)
[2023-01-28 10:41] LABS: BG BASE EXCESS -4.6 mmol/L (-2.0-2.0); BG DEOXYHEMOGLOBIN 3.5 % (0.0-5.0); BG FRACTION INSPIRED OXYGEN 21; BG HCO3 ACT 19.4 mmol/L (22.0-26.0); BG METHEMOGLOBIN 0.1 % (0.0-1.5); BG OXYGEN SATURATION 96.5 % (92.0-98.5); BG OXYHEMOGLOBIN 95.4 % (94.0-97.0); BG PCO2 31.1 mmHg (35.0-45.0); BG PH 7.414 (7.350-7.450); BG PO2 91.2 mmHg (75.0-100.0); BG SAMPLE SITE LEFT BRACHIAL; BG TOTAL HEMOGLOBIN 7.5 g/dL (12.0-18.0); BG VENT MODE ROOM AIR
[2023-01-28 10:50] LABS: BASOPHILS % 0.4 % (0.0-2.0); EOSINOPHILS % 3.4 % (0.0-5.0); HEMATOCRIT. 24.6 % (36.0-48.0); HEMOGLOBIN. 7.8 g/dL (12.0-16.0); LYMPHOCYTES % 14.2 % (20.0-50.0); MEAN CORPUSCULAR HEMOGLOBIN 29.7 pg (28.0-32.0); MEAN CORPUSCULAR HGB CONC 31.8 g/dL (31.0-37.0); MEAN CORPUSCULAR VOLUME 93.2 fL (81.0-99.0); MEAN PLATELET VOLUME 9.8 fl (7.4-10.4); MONOCYTES % 12.5 % (2.0-8.0); NEUTROPHILS % 69.5 % (40.0-76.0); PLATELET 141 x1000/uL (130-400); RED BLOOD CELL COUNT 2.64 mill/uL (4.2-5.4); RED CELL DISTRIBUTION WIDTH 16.9 % (11.6-14.6); WHITE BLOOD COUNT 4.8 x1000/uL (4.5-11.0)
[2023-01-28 11:52] LABS: POTASSIUM 3.7 mEq/L (3.5-5.1)
[2023-01-28 11:57] LABS: CALCIUM 9.1 mg/dL (8.5-10.1)
[2023-01-28] MEDS: IRON SUCROSE COMPLEX 100 MG/5 ML ML IV SCH (11:59)
[2023-01-28 12:00] VITALS: BP 157/55; PULSE 85; RESP 19; TEMP 98.1
[2023-01-28 12:14] LABS: CREATININE 5.6 mg/dL (0.6-1.3)
[2023-01-28] MEDS: MORPHINE SULFATE 2 MG/ML CPJ (NOT FOR IM USE) IV PRN (12:17)
[2023-01-28] MEDS ORDERED: DIPHENHYDRAMINE 50MG/ML VIAL IV PRN (15:15)
[2023-01-28 16:00] VITALS: BP 132/62; PULSE 98; RESP 19; TEMP 97.9
[2023-01-28 20:00] VITALS: BP 150/68; PULSE 80; RESP 18; TEMP 97.5
[2023-01-29 04:00] VITALS: BP 151/75; PULSE 90; RESP 18; TEMP 97.4
[2023-01-29] MEDS: AMLODIPINE 10MG TABLET PO SCH (06:21)
[2023-01-29] MEDS: BLOOD SUGAR DIAGNOSTIC STRIP TEST SCH ×2 (06:33→13:00)
[2023-01-29] MEDS: INSULIN LISPRO 100 UNITS/ML SUBCUT SCH ×2 (07:49→13:00)
[2023-01-29 08:00] VITALS: BP 158/78; PULSE 98; RESP 20; TEMP 97.8
[2023-01-29] MEDS: FUROSEMIDE 100MG/10ML VIAL IVP SCH (08:15)
[2023-01-29] MEDS: IRON SUCROSE COMPLEX 100 MG/5 ML ML IV SCH ×2 (09:00→09:05)
[2023-01-29] MEDS: LEVOFLOXACIN 500MG PREMIX 100 ML IV SCH (09:05)
[2023-01-29] MEDS: ATORVASTATIN CALCIUM 40MG TABLET PO SCH (09:05)
[2023-01-29] MEDS: SODIUM BICARBONATE 650 MG TABLET PO SCH (09:05)
[2023-01-29] MEDS: ISOSORBIDE DINITRATE 30MG TABLET PO SCH ×2 (09:05→13:05)
[2023-01-29] MEDS: OMEPRAZOLE 20MG CAPSULE EXTENDED RELEASE PO SCH (09:05)
[2023-01-29] MEDS: HYDRALAZINE HCL 50MG TABLET PO SCH ×2 (09:05→13:05)
[2023-01-29 12:00] VITALS: BP 146/62; PULSE 93; RESP 17; TEMP 97.3
[2023-01-29 15:58] VITALS: BP 120/57; PULSE 101; TEMP 97.6; O2SAT 98
[2023-01-29 16:00] VITALS: BP 120/57; PULSE 98; RESP 20; TEMP 97.4
== END 2023-01-29 23:47 | disposition home or self-care (01) | DRG 280 ==
LOC: ER 11:23 → 5EST 17:40
PROVIDERS: ADMIT Internal Medicine; ATTEND Internal Medicine
PROC: 5A09357 Assistance with Respiratory Ventilation, Less than 24 Consecutive Hours, Continuous Positive Airway Pressure (ICD-10-PCS; 2023-01-26)
PROC: 30233N1 Transfusion of Nonautologous Red Blood Cells into Peripheral Vein, Percutaneous Approach (ICD-10-PCS; principal; 2023-01-27)
DX: I13.2 Hypertensive heart and chronic kidney disease with heart failure and with stage 5 chronic kidney disease, or end stage renal disease (principal); I21.A1 Myocardial infarction type 2; I50.33 Acute on chronic diastolic (congestive) heart failure; J18.9 Pneumonia, unspecified organism; J96.01 Acute respiratory failure with hypoxia; N18.6 End stage renal disease; E44.0 Moderate protein-calorie malnutrition; E87.20 Acidosis, unspecified; J90 Pleural effusion, not elsewhere classified; Z68.24 Body mass index [BMI] 24.0-24.9, adult; I25.10 Atherosclerotic heart disease of native coronary artery without angina pectoris; E11.22 Type 2 diabetes mellitus with diabetic chronic kidney disease; D63.8 Anemia in other chronic diseases classified elsewhere; K74.60 Unspecified cirrhosis of liver; E78.5 Hyperlipidemia, unspecified; Z95.1 Presence of aortocoronary bypass graft; Z91.158 Patient's noncompliance with renal dialysis for other reason; Z95.3 Presence of xenogenic heart valve; Z88.0 Allergy status to penicillin; Z82.49 Family history of ischemic heart disease and other diseases of the circulatory system
CPT/HCPCS: 36415; 36600; 71045; 76604; 80048; 80053; 82375; 82550; 82553; 82805; 82962; 83036; 83880; 84145; 84484; 85025; 86850; 86900; 86920; 93005; 93970; 94660; 97161; 99291; C1893; J0456; J1200; J1815; J1940; J1956; J2270; J7060; P9016

== ENCOUNTER 2023-05-05 09:23 | Emergency (ER) | payer MEDICARE, MEDICAID ==
[~2023-05-05] VITALS: Ht 167.6 cm; Wt 66.0 kg
[~2023-05-05 09:23] MED LIST changes: -AMLO5TAB88 PO; -ASPI-1406 PO; +ASPI-1497 PO; -ATOR40TA70 PO; +CALC667C PO; -DOCU100T PO; +EPOE20006 SQ; +FOLI0.8T23 PO; -FURO40TA5 MT; -FURO40TA5 PO; +FURO80TA3 PO; -GABA-533 PO; +GABA-534 PO; +HYDR-4134 PO; -HYDR-4135 PO; +INSU100I24 SUBCUT; -INSU100I28 SQ; -ISOS20TA8 PO; -OMEP20CA14 PO; +PANT40SU PO; -PANT40TA51 PO; -SENN-155 PO; -TRAM100T40 PO
[2023-05-05 09:28] VITALS: O2SAT 100
[2023-05-05 11:06] LABS: BASOPHILS % 0.2 % (0.0-2.0); DIFFERENTIAL COMMENT 0; EOSINOPHILS % 2.9 % (0.0-5.0); LYMPHOCYTES % 15.2 % (20.0-50.0); MEAN CORPUSCULAR HEMOGLOBIN 29.3 pg (28.0-32.0); MEAN CORPUSCULAR HGB CONC 31.6 g/dL (31.0-37.0); MEAN CORPUSCULAR VOLUME 92.6 fL (81.0-99.0); MEAN PLATELET VOLUME 10.6 fl (7.4-10.4); MONOCYTES % 10.7 % (2.0-8.0); PLATELET 116 x1000/uL (130-400); RED BLOOD CELL COUNT 1.98 mill/uL (4.2-5.4); RED CELL DISTRIBUTION WIDTH 17.2 % (11.6-14.6); WHITE BLOOD COUNT 5.1 x1000/uL (4.5-11.0)
[2023-05-05 11:13] LABS: PROTHROMBIN TIME 10.5 sec (9.6-11.0)
[2023-05-05 11:17] LABS: ALANINE AMINOTRANSFERASE 25 IU/L (10-49); ALBUMIN 3.1 g/dL (3.2-4.8); ASPARTATE AMINOTRANSFERASE 34 IU/L (<34); BILIRUBIN TOTAL 0.3 mg/dL (0.1-1.0); CALCIUM 8.9 mg/dL (8.7-10.4); CARBON DIOXIDE 28 mEq/L (21-32); CHLORIDE 101 mEq/L (98-107); CREATININE 4.1 mg/dL (0.6-1.0); GLUCOSE 210 mg/dL (70-105); POTASSIUM 4.1 mEq/L (3.5-5.1); PROTEIN TOTAL 6.8 g/dL (6.0-8.3); SODIUM 136 mEq/L (136-145); UREA NITROGEN BLOOD 38 mg/dL (9-23)
[2023-05-05 11:23] LABS: HEMATOCRIT. 18.4 % (36.0-48.0); HEMOGLOBIN. 5.8 g/dL (12.0-16.0)
[2023-05-05 18:52] VITALS: BP 186/64; PULSE 71; RESP 18; TEMP 98.3
== END 2023-05-05 19:15 | disposition home or self-care (01) ==
LOC: ER 09:33
DX: D64.9 Anemia, unspecified (principal); I11.0 Hypertensive heart disease with heart failure; I50.9 Heart failure, unspecified; Z88.0 Allergy status to penicillin; Z79.899 Other long term (current) drug therapy; Z98.890 Other specified postprocedural states
CPT/HCPCS: 36415; 36430; 71045; 80053; 85025; 86850; 86900; 86920; 99291; P9016

== ENCOUNTER 2023-12-17 04:03 | Emergency (ER) | payer MEDICARE, MEDICAID ==
[~2023-12-17] VITALS: Ht 162.6 cm; Wt 61.0 kg
[~2023-12-17 04:03] MED LIST changes: -HYDR-4134 PO; +HYDR25TA78 PO
[2023-12-17 04:06] VITALS: BP 186/53; PULSE 66; RESP 18; TEMP 98.6; O2SAT 99
== END 2023-12-17 06:05 | disposition left against medical advice (07) ==
LOC: ER 04:12
DX: I12.0 Hypertensive chronic kidney disease with stage 5 chronic kidney disease or end stage renal disease (principal); N18.6 End stage renal disease; Z79.899 Other long term (current) drug therapy; Z88.0 Allergy status to penicillin; Z98.890 Other specified postprocedural states
CPT/HCPCS: 99283